=== PATIENT | female | born 1955 | race Caucasian/White ===

== ENCOUNTER 2018-11-03 11:46 | Emergency (ER) | payer OTHER ==
--- NOTE | 2018-11-03 12:10 | UC ---
Throat Pain/Nasal Nikhil HPI - HPI Summary HPI Summary: 63 yo female presents with sore throat since last night. This morning her throat pain was worse and she noticed white spots. Took some tylenol last night with mild relief. She works at [employer] and is unsure if she has had any sick contacts. She is eating and drinking well. Denies fever, chills, sinus symptoms, cough, SOB, rash. - History of Current Complaint Stated Complaint: SORE THROAT Time Seen by Provider: 11/03/18 12:09 Hx Obtained From: Patient Onset/Duration: Sudden Onset Severity: Moderate Pain Intensity: 5 Pain Scale Used: 0-10 Numeric - Allergies/Home Medications Allergies/Adverse Reactions: Allergies Allergy/AdvReac Type Severity Reaction Status Date / Time codeine Allergy Severe Nausea And Verified 11/03/18 12:12 Vomiting PMH/Surg Hx/FS Hx/Imm Hx - Additional Past Medical History Additional PMH: Bariatric surgery Cardiovascular History: Hypertension Psychological History: Anxiety - Surgical History Surgical History: Yes Surgery Procedure, Year, and Place: 02/2012 Lt MASTECTOMY, [facility] [place]. 1980 & C- SECTION [facility] [place] 1989 LEFT BREAST LUMPECTOMY CANCER [facility] [place] 1998 hysterectomy, [facility] [place]. 2010 L knee surgery [facility] [place]. 02/2012 LEFT BREAST MASTECTOMY [facility] [place]. 07/2012 RECONSTRUCTION LEFT & RT BREAST [facility] [place]. 08/2014 RIGHT KNEE REPAIR [facility] – [place]. Rt KNEE - Family History Known Family History: Positive: Hypertension - Social History Lives: With Family Alcohol Use: None Substance Use Type: None Smoking Status (MU): Former Smoker Type: Cigarettes Amount Used/How Often: LESS THEN 1/2PPD 30 YRS Length of Time of Smoking/Using Tobacco: 30 YRS Have You Smoked in the Last Year: No When Did the Patient Quit Smoking/Using Tobacco: 01/2012 Review of Systems All Other Systems Reviewed And Are Negative: Yes Constitutional: Positive: Negative Skin: Positive: Negative Eyes: Positive: Negative ENT: Positive: Sore Throat Respiratory: Positive: Negative Cardiovascular: Positive: Negative Gastrointestinal: Positive: Negative Neurovascular: Positive: Negative Neurological: Positive: Negative Psychological: Positive: Negative Physical Exam - Summary Physical Exam Summary: GENERAL: NAD. WDWN. No pain distress. SKIN: No rashes, sores, lesions, or open wounds. HEENT: Head: AT/NC Eyes: Conjunctiva clear without inflammation or discharge. Ears: Hearing grossly normal. TMs intact, no bulging, erythema, or edema. Nose: Nasal mucosa pink and moist. NTTP maxillary and frontal sinus. Throat: Posterior oropharynx moderate erythema and 2+ tonsillar enlargement. Mild exudates. Uvula midline. No hoarse voice or muffled voice. NECK: Supple. Mild TTP tonsillar LAD CHEST: CTAB. No r/r/w. No accessory muscle use. Breathing comfortably and in no distress. CV: RRR. Without m/r/g. Pulses intact. Cap refill <2seconds NEURO: Alert. PSYCH: Age appropriate behavior. Triage Information Reviewed: Yes Vital Signs: Vital Signs: Temp Pulse Resp BP Pulse Ox 96.5 F 64 18 145/68 98 11/03/18 12:09 11/03/18 12:09 11/03/18 12:09 11/03/18 12:09 11/03/18 12:09 Laboratory Tests 11/03/18 12:21 Group A Strep Rapid Positive A Vital Signs Reviewed: Yes Throat Pain/Nasal Course/Dx - Course Course Of Treatment: POC strep positive. Rx for amoxicillin - Differential Dx/Diagnosis Provider Diagnosis: Strep throat Discharge - Sign-Out/Discharge Documenting (check all that apply): Patient Departure All imaging exams completed and their final reports reviewed: No Studies - Discharge Plan Condition: Stable Disposition: HOME Prescriptions: Amoxicillin PO (*) [Amoxicillin 500 MG CAP*] 500 mg PO Q12H #20 cap Patient Education Materials: Strep Throat (DC) Referrals: Amarilys Lloyd NP [Primary Care Provider] - Additional Instructions: If you develop a fever, shortness of breath, chest pain, new or worsening symptoms - please call your PCP or go to the ED. Your blood pressure was high at todays visit. Please see your primary provider within 4 weeks for recheck and re-evaluation. - Billing Disposition and Condition Condition: STABLE Disposition: Home - Attestation Statements Provider Attestation: I was available for consult. This patient was seen by the WENDI. The patient was not presented to, seen by, or examined by me. -Skylar
[2018-11-03 12:12] VITALS: BP 145/68
== END 2018-11-03 12:30 | disposition home or self-care (01) ==
LOC: UCEAST 11:46
DX: J02.0 Streptococcal pharyngitis (principal); I10 Essential (primary) hypertension; Z87.891 Personal history of nicotine dependence; Z88.5 Allergy status to narcotic agent
CPT/HCPCS: 87651; 99212; G0463

== ENCOUNTER 2019-01-01 07:12 | Inpatient (IN) | payer OTHER ==
[~2019-01-01 07:12] MED LIST: Buffered Lidocaine 1% SYRIN* 1 ML/SYRINGE INTRADERM ONE; Famotidine IV* 10 MG/ML 2 ML (20 mg) IV ONE; Lactated Ringers 1000 ML Bag* 1,000 ML IV SCH
[2019-01-01] MEDS ORDERED: Heparin VIAL(*) 5000 UNITS/ML VIAL (FIVE THOUSAND) ONE (07:49)
[2019-01-01] MEDS ORDERED: ceFAZolin 2 GM PREMIX in ORs 2 GM/50 ML BAG IVPB ONE (07:50)
[2019-01-01] MEDS ORDERED: Famotidine IV* 10 MG/ML 2 ML (20 mg) ONE (07:50)
[2019-01-01] MEDS ORDERED: Buffered Lidocaine 1% SYRIN* 1 ML/SYRINGE INTRADERM ONE (07:50)
[2019-01-01] MEDS ORDERED: ceFAZolin 1 GM in Dextrose (*) 1 GM/50 ML BAG IVPB ONE (07:50)
[2019-01-01] MEDS ORDERED: fentaNYL* 50 MCG/ML 2 ML VIAL (100 MCG VIAL) ONE ×4 (08:32→12:31)
[2019-01-01] MEDS ORDERED: Ondansetron INJ* 2 MG/ML VIAL ONE ×2 (08:32→12:24)
[2019-01-01] MEDS ORDERED: Lidocaine 2% PF * 5 ML VIAL ONE (08:32)
[2019-01-01] MEDS ORDERED: Phenylephrine 10 MG/ML VIAL* 1 ML VIAL ONE (08:32)
[2019-01-01] MEDS ORDERED: Ketorolac INJ* 30 MG/ML 1 ML VIAL ONE (08:32)
[2019-01-01] MEDS ORDERED: Midazolam* 1 MG/ML 5 ML VIAL (5 MG) ONE (08:32)
[2019-01-01] MEDS ORDERED: Dexamethasone IV* 4 MG/ML 1 ML (4 MG) ONE (08:32)
[2019-01-01] MEDS ORDERED: Propofol* 10 MG/ML 20 ML BTL ONE (08:32)
[2019-01-01] MEDS ORDERED: Rocuronium* 10 MG/ML VIAL ONE (08:32)
[2019-01-01] MEDS ORDERED: Bupivacaine 0.25% EPI 200,000* 30 ML SDV ONE (09:36)
[2019-01-01] MEDS ORDERED: EPHEDrine (Pressors)* 50 MG/ML VIAL ONE (10:52)
[2019-01-01] MEDS ORDERED: Atropine 1MG/ML INJ* 1 ML VIAL ONE (10:52)
[2019-01-01] MEDS ORDERED: Ondansetron INJ* 2 MG/ML VIAL IV PRN (11:03)
[2019-01-01] MEDS ORDERED: Scopolamine 1.5 mg* PATCH TRANSDERM PRN (11:03)
[2019-01-01] MEDS ORDERED: Naloxone* 0.4 MG/ML 1 ML VIAL IV PRN (11:03)
[2019-01-01] MEDS ORDERED: Neostigmine Methylsulfate* 1 MG/ML 10 ML VIAL (1 mg/ml) ONE (11:14)
[2019-01-01] MEDS ORDERED: Glycopyrrolate IV* 0.2 MG/ML 1 ML VIAL ONE (11:14)
[2019-01-01] MEDS: Ketorolac INJ* 30 MG/ML 1 ML VIAL IV PRN (11:30)
--- NOTE | 2019-01-01 11:40 | OP ---
Operative Report - Blank - Operative Report Date of Operation: 01/01/19 Note: Brief Operative Note Preop Dx: morbid obesity Postop Dx: morbid obesity Procedure: laparoscopic sleeve gastrectomy Anesthesia: GET Surgeon: Juanita Television Engineering Teacher: PATRICIA Killian; DARELL Mendez Fluids: 1500 ml RL EBL: 10 ml Specimen: portion of stomach Drains: none Findings: dictated
[2019-01-01] MEDS ORDERED: Acetaminophen ADULT LIQ* 650 MG/20.3 ML UDC PO PRN (11:41)
[2019-01-01] MEDS ORDERED: HYDROcodone/ACET. 7.5/325 LIQ* 15 ML UDC PO PRN (11:41)
[2019-01-01] MEDS ORDERED: HYDROmorphone INJ1* 1 MG/ML SYRINGE IV SLOW PU PRN (11:41)
[2019-01-01] MEDS: fentaNYL* 50 MCG/ML 2 ML VIAL (100 MCG VIAL) IV PRN ×4 (11:58→12:46)
[2019-01-01] MEDS ORDERED: HYDROmorphone INJ1* 1 MG/ML SYRINGE ONE (12:24)
[2019-01-01] MEDS: Lactated Ringers 1000 ML Bag* 1,000 ML IV SCH ×2 (13:27→20:06)
[2019-01-01] MEDS: Heparin VIAL(*) 5000 UNITS/ML VIAL (FIVE THOUSAND) SUBCUT SCH ×2 (14:37→21:36)
[2019-01-01] MEDS: HYDROmorphone INJ1* 1 MG/ML SYRINGE IV SLOW PU PRN ×2 (14:40→18:26)
--- NOTE | 2019-01-01 18:16 | OP ---
CC: [facility]; Amarilys Lloyd NP * DATE OF OPERATION: 01/01/19 - ROOM #352 DATE OF : 59 SURGEON: Dl Grant MD. COLLET DRILLER: PATRICIA Ahumada. ANESTHESIOLOGIST: Dr. Morgan Ma. ANESTHESIA: General endotracheal. PRE-OP DIAGNOSIS: Clinically severe obesity. POST-OP DIAGNOSIS: Clinically severe obesity. OPERATIVE PROCEDURE: Laparoscopic sleeve gastrectomy. ESTIMATED BLOOD LOSS: Minimal. IV FLUIDS: Crystalloids. SPECIMENS: Portion of stomach. DRAINS: None. COMPLICATIONS: None. COUNTS: The instrument, needle, and sponge counts were correct. DESCRIPTION OF PROCEDURE: The patient was brought to the operating room and placed on the table supine. Sequential compression devices were placed on both lower extremities. General anesthesia was administered. She was positioned and padded appropriately. She received appropriate intravenous antibiotics. She was prepped and draped in the usual sterile fashion. A time-out was performed. Local anesthetic was infiltrated into the skin and soft tissue prior to making each incision. The entry into the abdomen was through a left upper quadrant incision accommodating a 5 mm optical trocar. After accessing the peritoneal cavity, carbon dioxide was insufflated to a pressure of 15 mmHg. Under direct visualization, two 12 mm trocars were placed, one in the right upper quadrant and one in the supraumbilical midline and then a 5-mm trocar was placed in the left upper quadrant laterally. A Holli liver retractor was placed percutaneously in the subxiphoid position and used to elevate the left lobe of the liver. The gastric anatomy appeared normal. The pylorus was identified and 6 cm proximal to this, the greater curvature was skeletonized in this procedure proximally all the way to the gastroesophageal junction. LigaSure was used to divide short gastric vessels including posterior short gastric vessels and there were noted to be no adhesions within the lesser sac. After completing the mobilization, the sleeve gastrectomy was performed using the Endo NARCISO stapler with purple reinforced cartridges and this was done over at 40-[place] bougie. After completing the division of the stomach , the stomach was retrieved using an endoscopic retrieval bag through the right upper quadrant port site, which was enlarged slightly to accommodate the stomach. The port site was subsequently closed with 0 Vicryl in interrupted fashion to approximate the muscle and fascia in one layer. The ports were then removed and carbon dioxide was released. The skin incisions were closed with 4- 0 Monocryl in a subcuticular fashion and Steri-Strips were applied. The patient tolerated this procedure well, was extubated and transferred to the recovery room in stable condition. [id number]/[facility] #: [id number] MTDD
[2019-01-01] MEDS: Famotidine IV* 10 MG/ML 2 ML (20 mg) IV SLOW PU SCH (21:37)
[2019-01-02] MEDS: Lactated Ringers 1000 ML Bag* 1,000 ML IV SCH (02:41)
[2019-01-02] MEDS: Ketorolac INJ* 30 MG/ML 1 ML VIAL IV PRN ×3 (03:44→21:18)
[2019-01-02] MEDS: Ondansetron INJ* 2 MG/ML VIAL IV PRN (03:49)
[2019-01-02] MEDS: Heparin VIAL(*) 5000 UNITS/ML VIAL (FIVE THOUSAND) SUBCUT SCH ×3 (05:30→21:18)
[2019-01-02] MEDS ORDERED: ALPRAZolam TAB* 0.25 MG PO PRN (08:13)
[2019-01-02] MEDS: D5W 1/2 NS KCl 20 Meq 1000 ML* 1,000 ML IV SCH ×2 (10:01→18:02)
[2019-01-02] MEDS: Famotidine IV* 10 MG/ML 2 ML (20 mg) IV SLOW PU SCH ×2 (10:01→21:18)
[2019-01-02] MEDS ORDERED: Scopolamine 1.5 mg* PATCH TRANSDERM SCH (12:00)
[2019-01-02] MEDS: Simethicone TAB* 80 MG TAB.CHEW PO PRN (16:02)
[2019-01-03] MEDS: D5W 1/2 NS KCl 20 Meq 1000 ML* 1,000 ML IV SCH ×2 (02:03→10:16)
[2019-01-03] MEDS: Heparin VIAL(*) 5000 UNITS/ML VIAL (FIVE THOUSAND) SUBCUT SCH (05:57)
[2019-01-03] MEDS: Ondansetron INJ* 2 MG/ML VIAL IV PRN (06:48)
[2019-01-03] MEDS: Simethicone TAB* 80 MG TAB.CHEW PO PRN (07:48)
[2019-01-03] MEDS: Famotidine IV* 10 MG/ML 2 ML (20 mg) IV SLOW PU SCH (09:03)
--- NOTE | 2019-01-03 11:00 | PN ---
Progress Note - Progress Note Date of Service: 01/03/19 Note: S: POD #2. Doing better. Still occ spasms/nausea, but drinking tyesha clears otherwise well. Patient seen w/ Dr. Grant. Passing flatus. Ambulating well. O: Vital Signs - 8 hr 01/03/19 01/03/19 01/03/19 03:36 05:33 07:45 Temperature 98.0 F 98.1 F Pulse Rate 43 50 Respiratory 16 16 Rate Blood Pressure 110/47 122/59 (mmHg) O2 Sat by Pulse 92 92 98 Oximetry 01/03/19 01/03/19 01/03/19 07:48 08:00 10:19 Temperature Pulse Rate Respiratory 16 16 16 Rate Blood Pressure (mmHg) O2 Sat by Pulse 98 Oximetry Intake and Output Last 24 Hours 01/01/19 01/02/19 01/03/19 01/04/19 06:59 06:59 06:59 06:59 Intake Total 3857 3150 60 Output Total 1000 950 900 Balance 2857 2200 -840 Weight 245 lb Intake: IV Fluids 3857 1980 3G CEFAZOLIN 100 D5 1/2 NS 20KCL 1979 LR 3757 Oral 0 1170 60 Output: Urine 1000 950 900 Other: Estimated Void Medium Large # Bowel Movements 0 0 # Voids 1 1 Gen: appears comfortable, sitting up in chair Heart: reg Lungs: clear Abd: lap sites clean and dry; soft; mild to moderate tenderness at RUQ incision only (expected) A: s/p lap sleeve gastrectomy, improving P: home today; instructions reviewed; f/u next wk at [facility]
[2019-01-03 12:27] VITALS: BP 141/66
--- NOTE | 2019-01-03 12:28 | DS ---
CC: Amarilys Lloyd NP at [facility]* DISCHARGE SUMMARY: DATE OF ADMISSION: 01/01/19 DATE OF DISCHARGE: 01/03/19 ATTENDING SURGEON: Dr. Dl Grant* (dictated by PATRICIA Ahumada). HOSPITAL COURSE: Please refer to admission history and physical and operative note for details. The patient was taken to the operating room on 01/01/19 at which time she underwent laparoscopic sleeve gastrectomy with Dr. Grant. There were no perioperative complications. Her bariatric clear liquid intake was subpar on postoperative day #1 and therefore, she stayed until today. As of this morning, she was tolerating fluid better with still some residual nausea and/or spasms when she drinks. She was deemed appropriate for discharge. See separate progress note from the same date. She will hold her prior hydrochlorothiazide. She has a followup at [facility] next week. She was instructed in terms of wound care, diet, and pain medication. She is discharged to home in good condition. PATRICIA AHUMADA [id number]/[facility] #: [id number] [facility]
[2019-01-04] MEDS ORDERED: Scopolamine PATCH Remove* 1 NOTE MISC PATCH OFF ONE (11:04)
== END 2019-01-03 12:15 | disposition home or self-care (01) | DRG 621 ==
LOC: AA 07:12 → SSU 11:41
PROVIDERS: ADMIT Surgery; ATTEND Surgery
PROC: 0DB64Z3 Excision of Stomach, Percutaneous Endoscopic Approach, Vertical (ICD-10-PCS; principal; 2019-01-01 09:00)
DX: E66.01 Morbid (severe) obesity due to excess calories (principal); K21.9 Gastro-esophageal reflux disease without esophagitis; K76.9 Liver disease, unspecified; I10 Essential (primary) hypertension; K76.0 Fatty (change of) liver, not elsewhere classified; G47.33 Obstructive sleep apnea (adult) (pediatric); I48.0 Paroxysmal atrial fibrillation; E78.5 Hyperlipidemia, unspecified; F41.9 Anxiety disorder, unspecified; J30.9 Allergic rhinitis, unspecified; I08.1 Rheumatic disorders of both mitral and tricuspid valves; M85.80 Other specified disorders of bone density and structure, unspecified site; R25.2 Cramp and spasm; R11.0 Nausea; Z90.12 Acquired absence of left breast and nipple; Z90.710 Acquired absence of both cervix and uterus; Z68.39 Body mass index [BMI] 39.0-39.9, adult; Z85.3 Personal history of malignant neoplasm of breast; Z82.49 Family history of ischemic heart disease and other diseases of the circulatory system; Z90.721 Acquired absence of ovaries, unilateral; Z72.89 Other problems related to lifestyle; Z87.891 Personal history of nicotine dependence; Z92.3 Personal history of irradiation; Z92.21 Personal history of antineoplastic chemotherapy; Z90.722 Acquired absence of ovaries, bilateral; Z90.49 Acquired absence of other specified parts of digestive tract; Z83.3 Family history of diabetes mellitus; Z95.0 Presence of cardiac pacemaker; Z82.3 Family history of stroke
CPT/HCPCS: 43775; 88307; A9270-GY; J0461; J0690; J1100; J1170; J1644; J1885; J2250; J2405; J2704; J2710; J3010

== ENCOUNTER 2019-07-03 16:43 | Inpatient (IN) | payer OTHER ==
--- OUTSIDE RECORDS SUMMARY | 2019-07-03 17:35 | XMS REPORT | Continuity of Care Document ---
:1955 External Reference #:[id number] Author Name Amarilys Lloyd N.P. (transmitted by agent of provider Yolis Cervantes) Address [address] [facility], [place] [address] Care Team Providers Name Role Phone Don Stovall MD - Orthopaedic Care Team Information Store Consultant [phone] Surgery Amarilys Lloyd NP - Family Care Team Information Store Consultant [phone] Problems Active Problems Provider Date Hyperlipidemia Amarilys Lloyd, N.P. Onset: 03/28/2011 Personal history of primary malignant Amarilys Lloyd, N.P. Onset: 01/17/2012 neoplasm of breast Anxiety state Amarilys Lloyd, N.P. Onset: 01/17/2012 Allergic rhinitis Amarilys Lloyd, N.P. Onset: 01/17/2012 Gastroesophageal reflux disease Amarilys Lloyd, N.P. Onset: 01/17/2012 Benign essential hypertension Amarilys Lloyd, N.P. Onset: 03/01/2012 Body mass index 30+ - obesity Yamil Vicente M.D.,FACP Onset: 08/22/2017 Ex-smoker Yamil Vicente M.D.,FACP Onset: 08/22/2017 Disorder of bursa of shoulder region Don Stovall MD Onset: 03/15/2018 Strain of muscle(s) and tendon(s) of Don Stovall MD Onset: 03/15/2018 the rotator cuff of right shoulder, subsequent encounter Controlled atrial fibrillation Luz Bennett NP Onset: 06/04/2018 Social History Type Date Description Comments Sex Unknown Cigarette Use 08/22/2017 Pack Years - 10 1/4 PPD or less, social, for 40 years ETOH Use Occasionally consumes alcohol Tobacco Use Start: Unknown End: Patient is a former Quit smoking Shonda Unknown smoker 2011 Recreational Drug Use Denies Drug Use Smoking Status Reviewed: 05/17/19 Patient is a former Quit smoking Shonda smoker 2011 Exercise Type/Frequency Exercises regularly Walks daily Allergies, Adverse Reactions, Alerts Active Allergies Reaction Severity Comments Date Codeine Nausea and Vomiting Moderate 09/30/2010 Inactive Allergies No Known Drug Allergy 04/22/2010 Medications Active Medications SIG Qnty Indications Ordering Date Provider Trazodone HCL 1 tablet at 30tabs G47.00 Amarilys Varmorelia, 05/17/2019 50mg bedtime as needed N.P. Tablets Xarelto 1 by mouth every 30tabs Amarilys Gabino, 02/25/2019 20mg Tablets day N.P. Ketoconazole apply once daily 60units B35.3 Amarilys Gabino, 2018 2% Cream to affected area N.P. Xanax take one tablet 30tabs Amarilys Lloyd, 09/30/2010 0.25mg Tablets by mouth up to N.P. three times a day as needed for anxiety, maximum 3 per day Ibuprofen 200 400-600mg every 6 Unknown 200mg hours as needed Tablets for pain. Multivitamin Adult 1 by mouth every Unknown day (bariatric Tablets formula) Iron 2 tablets daily Unknown 90(18Fe) mg Tablets History Medications Fluconazole one by mouth 2tabs B37.3 Amarilys Gabino, 11/20/2018 - 150mg Tablets may repeat in 3 N.P. 11/26/2018 days as needed Cyclobenzaprine HCL 1 by mouth at 20tabs M62.838 Amarilys Gabino, 2018 - 5mg bedtime as N.P. 12/04/2018 Tablets needed for back pain Immunizations CPT Code Status Date Vaccine Lot # [id number] Given 06/28/2010 Tdap - Tetanus/Diptheria/Acellular Pertussis Vital Signs Date Vital Result Comment 05/17/2019 9:11am Height 68 inches 5'8" Weight 206.25 lb Heart Rate 49 /min BP Systolic 124 mmHg BP Diastolic 68 mmHg Body Temperature 97.9 F O2 % BldC Oximetry 99 % BMI (Body Mass Index) 31.4 kg/m2 05/06/2019 1:33pm Heart Rate 80 /min BP Systolic 110 mmHg Rue, large cuff BP Diastolic 80 mmHg Rue, large cuff Respiratory Rate 12 /min Results Test Date Facility Test Result H/L Range Note Comp Metabolic 05/04/2019 [facility] Sodium 143 mmol/L Normal 135-[address] [place] [address] [phone] Potassium 3.9 mmol/L Normal 3.5-5.0 Chloride 108 mmol/L Normal 101-111 Co2 Carbon Dioxide 28 mmol/L Normal 22-32 Anion Gap 7 mmol/L Normal 2-11 Glucose 95 mg/dL Normal 70-100 Blood Urea Nitrogen 14 mg/dL Normal 6-24 Creatinine 0.66 mg/dL Normal 0.51-0.95 BUN/Creatinine Ratio 21.2 High 8-20 Calcium 9.0 mg/dL Normal 8.6-10.3 Total Protein 6.4 g/dL Normal 6.4-8.9 Albumin 3.8 g/dL Normal 3.2-5.2 Globulin 2.6 g/dL Normal 2-4 Albumin/Globulin Ratio 1.5 Normal 1-3 Total Bilirubin 0.70 mg/dL Normal 0.2-1.0 Alkaline Phosphatase 89 U/L Normal 34-104 Alt 12 U/L Normal 7-52 Ast 15 U/L Normal 13-39 Egfr Non- 91.0 >60 Egfr 110.2 >60 1 Lipid Profile 05/04/2019 [facility] Triglycerides 90 mg/dL 2 (Trig/Chol/HDL) [address] [place] [address] [phone] Cholesterol 150 mg/dL 3 HDL Cholesterol 45.0 mg/dL 4 LDL Cholesterol 87 mg/dL 5 CBC Auto 03/08/2019 [facility] White Blood 7.3 10^3/uL Normal 3.5-10.[address] [place] [address] [phone] Red Blood Count 4.36 10^6/uL Normal 3.70-4.87 Hemoglobin 12.8 g/dL Normal 12.0-16.0 Hematocrit 38 % Normal 35-47 Mean Corpuscular Volume 87 fL Normal 80-97 Mean Corpuscular Hemoglobin 29 pg Normal 27-31 Mean Corpuscular HGB Conc 34 g/dL Normal 31-36 Red Cell Distribution Width 15 % Normal 10-15 Platelet Count 174 10^3/uL Normal 150-450 Mean Platelet Volume 10.6 fL High 7.4-10.4 Abs Neutrophils 4.6 10^3/uL Normal 1.5-7.7 Abs Lymphocytes 2.3 10^3/uL Normal 1.0-4.8 Abs Monocytes 0.3 10^3/uL Normal 0-0.8 Abs Eosinophils 0.1 10^3/uL Normal 0-0.6 Abs Basophils 0.0 10^3/uL Normal 0-0.2 Abs Nucleated RBC 0.0 10^3/uL Granulocyte % 62.7 % Lymphocyte % 31.2 % Monocyte % 4.6 % Eosinophil % 1.0 % Basophil % 0.5 % Nucleated Red Blood Cells % 0.1 Laboratory test 03/08/2019 [facility] Ferritin 87.8 ng/mL Normal 11-[address] [place] [phone] Iron & Iron 03/08/2019 [facility] Iron 42 g/dL Low 50-212 Binding Capacity [address] [place] [phone] Unsaturated Iron Binding < 243 g/dL Total Iron Binding Capacity 258 g/dL Normal 250-450 Transferrin 184 mg/dL Low 203-362 % Iron Saturation 16 % Normal 15-55 Laboratory 02/25/2019 [facility] TSH (Thyroid 0.95 Normal 0.34 -5.60 test finding [address] [place] [address] Stim Horm) mcIU/[place] [address] [phone] Comp Metabolic 02/25/2019 [facility] Sodium 143 mmol/L Normal 135-[address] [place] [address] [phone] Potassium 4.0 mmol/L Normal 3.5-5.0 Chloride 107 mmol/L Normal 101-111 Co2 Carbon Dioxide 27 mmol/L Normal 22-32 Anion Gap 9 mmol/L Normal 2-11 Glucose 98 mg/dL Normal 70-100 Blood Urea Nitrogen 15 mg/dL Normal 6-24 Creatinine 0.71 mg/dL Normal 0.51-0.95 BUN/Creatinine Ratio 21.1 High 8-20 Calcium 9.4 mg/dL Normal 8.6-10.3 Total Protein 6.6 g/dL Normal 6.4-8.9 Albumin 4.0 g/dL Normal 3.2-5.2 Globulin 2.6 g/dL Normal 2-4 Albumin/Globulin Ratio 1.5 Normal 1-3 Total Bilirubin 0.60 mg/dL Normal 0.2-1.0 Alkaline Phosphatase 85 U/L Normal 34-104 Alt 19 U/L Normal 7-52 Ast 21 U/L Normal 13-39 Egfr Non- 83.7 >60 Egfr 101.3 >60 6 CBC Auto 02/25/2019 [facility] White Blood 8.7 10^3/uL Normal 3.5-10.[address] [place] [address] [phone] Red Blood Count 5.30 10^6/uL High 3.70-4.87 Hemoglobin 15.5 g/dL Normal 12.0-16.0 Hematocrit 46 % Normal 35-47 Mean Corpuscular Volume 87 fL Normal 80-97 Mean Corpuscular Hemoglobin 29 pg Normal 27-31 Mean Corpuscular HGB Conc 34 g/dL Normal 31-36 Red Cell Distribution Width 14 % Normal 10-15 Platelet Count 215 10^3/uL Normal 150-450 Mean Platelet Volume 10.6 fL High 7.4-10.4 Abs Neutrophils 5.7 10^3/uL Normal 1.5-7.7 Abs Lymphocytes 2.3 10^3/uL Normal 1.0-4.8 Abs Monocytes 0.6 10^3/uL Normal 0-0.8 Abs Eosinophils 0.1 10^3/uL Normal 0-0.6 Abs Basophils 0.0 10^3/uL Normal 0-0.2 Abs Nucleated RBC 0.0 10^3/uL Granulocyte % 66.0 % Lymphocyte % 26.3 % Monocyte % 6.4 % Eosinophil % 0.9 % Basophil % 0.4 % Nucleated Red Blood Cells % 0.1 Laboratory test 01/01/2019 [facility] Surgical SEE RESULT [address] [place] [address] [phone] Basic Metabolic 12/25/2018 [facility] Sodium 137 mmol/L Normal 135-[address] [place] [address] [phone] Potassium 3.9 mmol/L Normal 3.5-5.0 Chloride 101 mmol/L Normal 101-111 Co2 Carbon Dioxide 29 mmol/L Normal 22-32 Anion Gap 7 mmol/L Normal 2-11 Glucose 94 mg/dL Normal 70-100 Blood Urea Nitrogen 16 mg/dL Normal 6-24 Creatinine 0.70 mg/dL Normal 0.51-0.95 BUN/Creatinine Ratio 22.9 High 8-20 Calcium 9.5 mg/dL Normal 8.6-10.3 Egfr Non- 85.1 >60 Egfr 102.9 >60 8 CBC No Diff 12/25/2018 [facility] White Blood 9.8 10^3/uL Normal 3.5-10.[address] [place] [address] [phone] Red Blood Count 4.79 10^6/uL Normal 3.70-4.87 Hemoglobin 14.0 g/dL Normal 12.0-16.0 Hematocrit 41 % Normal 35-47 Mean Corpuscular Volume 86 fL Normal 80-97 Mean Corpuscular Hemoglobin 29 pg Normal 27-31 Mean Corpuscular HGB Conc 34 g/dL Normal 31-36 Red Cell Distribution Width 14 % Normal 10.5-15 Platelet Count 253 10^3/uL Normal 150-450 Mean Platelet Volume 8.8 fL Normal 7.4-10.4 Urine Culture And 11/20/2018 [facility] Urine Culture SEE RESULT [address] [place] [address] [phone] Ua Routine 11/20/2018 [facility] Ua Specific [address] [place] Ua PH 5 Ua Color cammie Ua Appera cloudy Ua WBC trace Ua Protein negative Ua Glucose negative Ua Ketones negative Ua Bilirubin negative Ua Urobilinogen negative Ua Nitrite negative Ua Occult Blood trace 1 Because ethnic data is not always readily available, this report includes an eGFR for both -Americans and non- Americans. The National Kidney Disease Education Program (NKDEP) does not endorse the use of the MDRD equation for patients that are not between the ages of 18 and 70, are , have extremes of body size, muscle mass, or nutritional status, or are non- or non-. According to the National Kidney Foundation, irrespective of diagnosis, the stage of the disease is based on the level of kidney function: Stage Description GFR(mL/min/1.73 m(2)) 1 Kidney damage with normal or decreased GFR 90 2 Kidney damage with mild decrease in GFR 60-89 3 Moderate decrease in GFR 30-59 4 Severe decrease in GFR 15-29 5 Kidney failure <15 (or dialysis) 2 Desirable: <150 Borderline High: 150-199 High: 200-499 Very High: >500 3 Desirable: <200 Borderline High: 200-239 High: >239 4 Low: <40 Desirable: 40-60 High: >60 5 Desirable: <100 Near Optimal: 100-129 Borderline High: 130-159 High: 160-189 Very High: >189 6 Because ethnic data is not always readily available, this report includes an eGFR for both -Americans and non- Americans. The National Kidney Disease Education Program (NKDEP) does not endorse the use of the MDRD equation for patients that are not between the ages of 18 and 70, are , have extremes of body size, muscle mass, or nutritional status, or are non- or non-. According to the National Kidney Foundation, irrespective of diagnosis, the stage of the disease is based on the level of kidney function: Stage Description GFR(mL/min/1.73 m(2)) 1 Kidney damage with normal or decreased GFR 90 2 Kidney damage with mild decrease in GFR 60-89 3 Moderate decrease in GFR 30-59 4 Severe decrease in GFR 15-29 5 Kidney failure <15 (or dialysis) 7 SEE RESULT BELOW Name: SHALINI MANDEL : [address]: Dl Grant MD Acct: [id number] Unit: [id number] AGE: 63 Location: [place] [address] Re01/01/19 SEX: F Status: ADM IN SPEC: [id number] ALYCIA: 01/01/19- SUBM DR: Dl Grant MD REQ: [id number] RECD: 01/01/19780 STATUS: SOUT _ ORDERED: LEVEL 5 FINAL DIAGNOSIS Stomach, partial gastrectomy: -- Benign gastric tissue with no significant pathologic abnormalities. PRE-OPERATIVE DIAGNOSIS Morbid obesity GROSS DESCRIPTION The specimen is received in formalin labeled, Portion of Stomach, and consists of a 22.0 x 6.5 x 2.2 cm previously disrupted portion of gastric tissue. The serosa is predominantly shaggy almanza-red with multiple superficial and transmural defects, scant adherent yellow fat and a prominent staple line. The mucosa is predominantly disrupted. The intact mucosa is glistening almanza-red with normal rugal folds. Senior Office Assistant sections, one cassette. Signed by and Reported on: Damaris Triana MD 01/02/19 1428 END OF REPORT DEPARTMENT OF PATHOLOGY, [address] [place] [address] Tony Mendes M.D. Director [facility] # [id number] 8 Because ethnic data is not always readily available, this report includes an eGFR for both -Americans and non- Americans. The National Kidney Disease Education Program (NKDEP) does not endorse the use of the MDRD equation for patients that are not between the ages of 18 and 70, are , have extremes of body size, muscle mass, or nutritional status, or are non- or non-. According to the National Kidney Foundation, irrespective of diagnosis, the stage of the disease is based on the level of kidney function: Stage Description GFR(mL/min/1.73 m(2)) 1 Kidney damage with normal or decreased GFR 90 2 Kidney damage with mild decrease in GFR 60-89 3 Moderate decrease in GFR 30-59 4 Severe decrease in GFR 15-29 5 Kidney failure <15 (or dialysis) 9 SEE RESULT BELOW Name: SHALINI MANDEL : [address]: Amarilys Lloyd NP Acct: [id number] Unit: [id number] AGE: 63 Location: [facility] Re11/20/18 SEX: F Status: REG REF SPEC: [id number] ALYCIA: 11/20/18-[address]: Amarilys Lloyd NP REQ: [id number] RECD: 11/20/18 STATUS: COMP _ SOURCE: URINE [facility]: ORDERED: Urine Culture COMMENTS: [id number] Urine Source: Random Procedure Result Reported Site Urine Culture Final 11/23/18- 912 ML No growth of clinically significant organisms * ML - Main Lab . END OF REPORT DEPARTMENT OF PATHOLOGY, [address] [place] [address] Tony Mendes M.D. Director [facility] # [id number] Procedures Date Code Description Status 05/07/2019 12547 Cardioversion Completed 05/06/2019 29043 EKG Tracing & Interpretation Completed 02/25/2019 49817 EKG Tracing & Interpretation Completed 12/07/2018 45198 EKG Tracing & Interpretation Completed 10/17/2018 [id number] Colonoscopy Completed 01/26/2018 [id number] Mammogram Completed 01/25/2017 [id number] Mammogram Completed 01/25/2016 [id number] Mammogram Completed 01/22/2015 [id number] Mammogram Completed 01/21/2014 [id number] Mammogram Completed 01/21/2013 [id number] Mammogram Completed 02/06/2012 [id number] Mammogram Completed 02/01/2012 [id number] Mammogram Completed 07/20/2010 [id number] Mammogram Completed 07/20/2010 [id number] Bone Mineral Density Test Completed 03/20/2008 [id number] Mammogram Completed 10/31/2007 [id number] Colonoscopy Completed Medical Devices Description No Information Available Encounters Type Date Location Provider Dx Diagnosis Office Visit 02/25/2019 [facility] Internal Amarilys Lloyd, N.P. R00.2 Palpitations 3:40p Medicine - Ccmob I48.1 Persistent atrial fibrillation Office Visit 12/07/2018 9:00a [facility] Jose Garcia R00.2 Palpitations Of Kayley Snyder M.D. Z01.810 Encounter for preprocedural cardiovascular examination I49.3 Ventricular premature depolarization I48.0 Paroxysmal atrial fibrillation E66.01 Morbid (severe) obesity due to excess calories Office Visit 11/29/2018 Chris Ochoa M19.032 Primary 3:00p Orthopedics at [facility] osteoarthritis, left [place] wrist M25.532 Pain in left wrist Office Visit 11/20/2018 3:40p [facility] Internal Amarilys Lloyd, B37.3 Candidiasis of Medicine - N.P. vulva and vagina Ccmob R10.12 Left upper quadrant pain M62.838 Other muscle spasm Assessments Date Code Description Provider 05/17/2019 Z00.00 Encounter for general adult medical Amarilys Lloyd, N.P. examination without abnormal findings 05/17/2019 I48.0 Paroxysmal atrial fibrillation Amarilys Varn, N.P. 05/17/2019 I10 Essential (primary) hypertension Amarilys Varn, N.P. 05/17/2019 F41.9 Anxiety disorder, unspecified Amarilys Varn, N.P. 05/17/2019 Z85.3 Personal history of malignant neoplasm of Amarilys Varn, N.P. breast 05/17/2019 E78.00 Pure hypercholesterolemia, unspecified Amarilys Varn, N.P. 05/17/2019 K21.9 Gastro-esophageal reflux disease without Amarilys Varn, N.P. esophagitis 05/17/2019 Z98.84 Bariatric surgery status Amarilys Lloyd, N.P. 05/17/2019 G47.00 Insomnia, unspecified Amarilys Lloyd, N.P. 05/06/2019 I48.0 Paroxysmal atrial fibrillation Nurse Visit IC 02/25/2019 I48.1 Persistent atrial fibrillation Herminia Rock MD 02/25/2019 R00.2 Palpitations Amarilys Lloyd, N.P. 02/25/2019 I48.1 Persistent atrial fibrillation Amarilys Lloyd, N.P. 12/07/2018 R00.2 Palpitations Jose Snyder M.D. 12/07/2018 Z01.810 Encounter for preprocedural cardiovascular Jose Snyder M.D. examination 12/07/2018 I49.3 Ventricular premature depolarization Jose Snyder M.D. 12/07/2018 I48.0 Paroxysmal atrial fibrillation Jose Snyder M.D. 12/07/2018 E66.01 Morbid (severe) obesity due to excess Jose Snyder M.D. 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 11/20/2018 R10.12 Left upper quadrant pain Amarilys Lloyd N.P. 11/20/2018 M62.838 Other muscle spasm Amarilys Lloyd, N.P. Plan of Treatment 05/17/2019 - Amarilys Lloyd, N.P.Z00.00 Encounter for general adult medical examination without abnormal findingsComments:For your routine health maintenance: I encourage you to continue with regular exercise. While your general nutrition is fairly good, you could improve by cutting back on desserts.Your colonoscopy is upto date. You had this in 2019. You will need this repeated in 2028. Your Tetanus immunization is up to date. You received this in 2009. It is good for 10 years unless you have a major injury, then it is good for 5 years. There is a new shingles vaccine available, Shingrix. This is a series of 2 injections given 2 - 6 months apart. This is available at the pharmacy and I urge you to get this.I48.0 Paroxysmal atrial fibrillationComments :With your history of atrial fibrillation, please continue your management with your safety attendant.I10 Essential (primary) hypertensionComments:Your high blood pressure is in excellent control on your current management. I would like you to monitor your blood pressure at home. If your readings at home are consistently higher than 140/90, please call the office.F41.9 Anxiety disorder, unspecifiedComments:For your anxiety: Continue your current management. If you should at any time feel your symptoms arenot well controlled, please give the office a call.Z85.3 Personal history of malignant neoplasm of breastComments:I am ordering your mammogram. The imaging department will review the results with you at the time ofservice. Please continue your care with your specialist.E78.00 Pure hypercholesterolemia, unspecifiedComments:Your recent labs to check your cholesterol looked good.K21.9 Gastro-esophageal reflux disease without esophagitisComments:For your esophageal reflux: I advise you to avoid food triggers. These include: Spicy, greasy, and acidic foods, along with coffee and alcohol. If at any point you feel your symptoms are not well controlled, please contact the office.Z98.84 Bariatric surgery statusComments:I have ordered blood work to check all your vitamin and iron levels.I will contact you with your results.G47.00 Insomnia, unspecifiedNew Medication: Trazodone HCL 50 mg - 1 tablet at bedtime as neededComments:For your insomnia:I have prescribed Trazodone 50 mg for you. You may take 1 tablet as needed for insomnia.Be sure you have a dark quiet room to sleep in.Avoid reading or watching television in bed.Stayoff all electronic devices for at least 2 hours before bed.If you do not find this helpful, please let me know. Functional Status Description No Information Available Mental Status Description No Information Available Referrals Refer to Reason for Referral Status Appt Date Jose Snyder MD Patient is in atrial fibrillation. She had Sent bariatric surgery in December. Has been compliant with her vitamins. I started her on Xarelto 20 mg. Patient is referred for management. Thank you for seeing this very pleasant patient. [id number] [place] [phone]
--- OUTSIDE RECORDS SUMMARY | 2019-07-03 17:35 | XMS REPORT | Continuity of Care Document ---
:1955 External Reference #:[id number] Author Name Oumou Guillermo MD (transmitted by agent of provider Lito Lagos) Address [address] [facility], [place] [address] Care Team Providers Name Role Phone Don Stovall MD - Orthopaedic Care Team Information Coagulation Operator [phone] Surgery Amarilys Lloyd NP - Family Care Team Information Coagulation Operator [phone] Problems Active Problems Provider Date Hyperlipidemia Amarilys [...] End: Patient is a former Quit smoking January Unknown smoker 2011 Recreational Drug Use Denies Drug Use Smoking Status Reviewed: 06/19/19 Patient is a former Quit smoking Shonda smoker 2011 Exercise Type/Frequency Exercises regularly Walks daily Allergies, Adverse Reactions, Alerts Active Allergies Reaction Severity Comments Date Codeine Nausea and Vomiting Moderate 09/30/2010 Inactive Allergies No Known Drug Allergy 04/22/2010 Medications Active Medications SIG Qnty Indications Ordering Provider Date Trazodone HCL 1 tablet at 30tabs G47.00 Amarilys Varn, 05/17/2019 50mg bedtime as needed N.P. Tablets Xarelto 1 by mouth every 30tabs Amarilys Varn, 02/25/2019 20mg Tablets day N.P. Xanax take one tablet 30tabs Amarilys Varn, 09/30/2010 0.25mg Tablets by mouth up to N.P. three times a day as needed for anxiety, maximum 3 per day Ibuprofen 200 400-600mg every 6 Unknown 200mg hours as needed Tablets for pain. Multivitamin Adult 1 by mouth every Unknown day (bariatric Tablets formula) Iron 2 tablets daily Unknown 90(18Fe) mg Tablets Ketoconazole apply twice daily Unknown 2% Cream to affected area Immunizations CPT Code Status Date Vaccine Lot # [id number] Given 06/28/2010 Tdap - Tetanus/Diptheria/Acellular Pertussis Vital Signs Date Vital Result Comment 06/19/2019 3:22pm Height 68 inches 5'8" Weight 202.00 lb Heart Rate 72 /min BP Systolic 148 mmHg BP Diastolic 80 mmHg Respiratory Rate 16 /min Body Temperature 98.1 F BMI (Body Mass Index) 30.7 kg/m2 05/17/2019 9:11am Height 68 inches 5'8" Weight 206.25 lb Heart Rate 49 /min BP Systolic 124 mmHg BP Diastolic 68 mmHg Body Temperature 97.9 F O2 % BldC Oximetry 99 % BMI (Body Mass Index) 31.4 kg/m2 Results Test Acquired Date Facility Test Result H/L Range Note Bariatric Panel 06/17/2019 [facility] Ferritin 50.3 ng/mL Normal 11-307 Post Op [address] [place] [address] [phone] Vitamin B12 472 pg/mL Normal 180-914 1 Folic Acid (Folate) > 20.00 ng/mL >3.99 Vitamin D Total 25(Oh) 24.9 ng/mL Normal 20-50 2 Vitamin B1 (Whole Blood) 180 nmol/L 70-180 3 Vitamin E Level 10.8 mg/L 5.5 - 17.0 4 Comp Metabolic 06/17/2019 [facility] Sodium 141 mmol/L Normal 135-[address] [place] [address] [phone] Potassium 3.8 mmol/L Normal 3.5-5.0 Chloride 107 mmol/L Normal 101-111 Co2 Carbon Dioxide 27 mmol/L Normal 22-32 Anion Gap 7 mmol/L Normal 2-11 Glucose 106 mg/dL High 70-100 Blood Urea Nitrogen 16 mg/dL Normal 6-24 Creatinine 0.67 mg/dL Normal 0.51-0.95 BUN/Creatinine Ratio 23.9 High 8-20 Calcium 9.1 mg/dL Normal 8.6-10.3 Total Protein 6.7 g/dL Normal 6.4-8.9 Albumin 4.0 g/dL Normal 3.2-5.2 Globulin 2.7 g/dL Normal 2-4 Albumin/Globulin Ratio 1.5 Normal 1-3 Total Bilirubin 0.40 mg/dL Normal 0.2-1.0 Alkaline Phosphatase 98 U/L Normal 34-104 Alt 14 U/L Normal 7-52 Ast 16 U/L Normal 13-39 Egfr Non- 89.2 >60 Egfr 107.9 >60 5 CBC Auto 06/17/2019 [facility] White Blood 9.2 10^3/uL Normal 3.5-10.[address] [place] [address] [phone] Red Blood Count 4.60 10^6/uL Normal 3.70-4.87 Hemoglobin 14.0 g/dL Normal 12.0-16.0 Hematocrit 41 % Normal 35-47 Mean Corpuscular Volume 89 fL Normal 80-97 Mean Corpuscular Hemoglobin 31 pg Normal 27-31 Mean Corpuscular HGB Conc 34 g/dL Normal 31-36 Red Cell Distribution Width 13 % Normal 10-15 Platelet Count 229 10^3/uL Normal 150-450 Mean Platelet Volume 9.4 fL Normal 7.4-10.4 Abs Neutrophils 6.0 10^3/uL Normal 1.5-7.7 Abs Lymphocytes 2.6 10^3/uL Normal 1.0-4.8 Abs Monocytes 0.4 10^3/uL Normal 0-0.8 Abs Eosinophils 0.1 10^3/uL Normal 0-0.6 Abs Basophils 0.0 10^3/uL Normal 0-0.2 Abs Nucleated RBC 0.0 10^3/uL Granulocyte % 65.9 % Lymphocyte % 28.4 % Monocyte % 3.9 % Eosinophil % 1.3 % Basophil % 0.5 % Nucleated Red Blood Cells % 0.0 Iron & Iron Binding 06/17/2019 [facility] Iron 88 g/dL Normal 50-212 [address] [place] [address] [phone] Unsaturated Iron Binding < 278 g/dL Total Iron Binding Capacity 293 g/dL Normal 250-450 Transferrin 209 mg/dL Normal 203-362 % Iron Saturation 30 % Normal 15-55 Surgical 06/06/2019 [facility] Surgical SEE RESULT 6, 7 Pathology [address] [facility] [place] [place] [address] [phone] PDFReport [id number] <SEE NOTE> Lipid Profile 05/04/2019 [facility] Triglycerides 90 mg/dL 8 (Trig/Chol/HDL) [address] [place] [address] [phone] Cholesterol 150 mg/dL 9 HDL Cholesterol 45.0 mg/dL 10 LDL Cholesterol 87 mg/dL 11 Comp Metabolic 05/04/2019 [facility] Sodium 143 mmol/L Normal 135-145 Panel [address] [place] [address] [phone] Potassium 3.9 mmol/L Normal 3.5-5.0 Chloride 108 [...] Egfr Non- 91.0 >60 Egfr 110.2 >60 12 Laboratory test 03/08/2019 [facility] Ferritin 87.8 ng/mL Normal 11-[address] [place] [address] [phone] Iron & Iron 03/08/2019 [facility] Iron 42 g/dL Low 50-212 Binding Capacity [address] [place] [address] [phone] Unsaturated Iron Binding < 243 g/dL Total Iron Binding Capacity 258 g/dL Normal 250-450 Transferrin 184 mg/dL Low 203-362 % Iron Saturation 16 % Normal 15-55 CBC Auto 03/08/2019 [facility] White Blood 7.3 10^3/uL Normal 3.5-10.[address] [place] [address] [phone] Red Blood Count 4.36 10^6/uL Normal 3.70-4.87 [...] Nucleated Red Blood Cells % 0.1 Laboratory 02/25/2019 [facility] TSH (Thyroid 0.95 Normal 0.34 -5.[address] Stim Horm) mcIU/[place] [address] [phone] Comp Metabolic 02/25/2019 [facility] Sodium 143 mmol/L Normal 135-[address] [place] [address] [phone] Potassium 4.0 mmol/L Normal 3.5-5.0 Chloride 107 [...] Egfr Non- 83.7 >60 Egfr 101.3 >60 13 CBC Auto 02/25/2019 [facility] White Blood 8.7 10^3/uL Normal 3.5-10.[address] [place] [address] [phone] Red Blood Count 5.30 10^6/uL High 3.70-4.87 [...] Blood Cells % 0.1 Laboratory test 01/01/2019 [facility] Surgical SEE RESULT [address] [place] [address] [phone] Basic Metabolic 12/25/2018 [facility] Sodium 137 mmol/L Normal 135-[address] [place] [address] [phone] Potassium 3.9 mmol/L Normal 3.5-5.0 Chloride 101 mmol/L Normal 101-111 Co2 Carbon Dioxide 29 mmol/L Normal 22-32 Anion Gap 7 mmol/L Normal 2-11 Glucose 94 mg/dL Normal 70-100 Blood Urea Nitrogen 16 mg/dL Normal 6-24 Creatinine 0.70 mg/dL Normal 0.51-0.95 BUN/Creatinine Ratio 22.9 High 8-20 Calcium 9.5 mg/dL Normal 8.6-10.3 Egfr Non- 85.1 >60 Egfr 102.9 >60 15 CBC No Diff 12/25/2018 [facility] White Blood 9.8 10^3/uL Normal 3.5-10.[address] [place] [address] [phone] Red Blood Count 4.79 10^6/uL Normal 3.70-4.87 Hemoglobin 14.0 g/dL Normal 12.0-16.0 Hematocrit 41 % Normal 35-47 Mean Corpuscular Volume 86 fL Normal 80-97 Mean Corpuscular Hemoglobin 29 pg Normal 27-31 Mean Corpuscular HGB Conc 34 g/dL Normal 31-36 Red Cell Distribution Width 14 % Normal 10.5-15 Platelet Count 253 10^3/uL Normal 150-450 Mean Platelet Volume 8.8 fL Normal 7.4-10.4 1 Normal Range 180 to 914 Indeterminate Range 145 to 180 Deficient Range <145 2 Total 25-Hydroxyvitamin D2 and D3 (25-OH-VitD) <10 ng/mL (severe deficiency) 10-19 ng/mL (mild to moderate deficiency) 20-50 ng/mL (optimum levels) 51-80 ng/mL (increased risk of hypercalciuria) >80 ng/mL (toxicity possible) 3 ADDITIONAL INFORMATION This test was developed and its performance characteristics determined by [facility] in a manner consistent with CLIA requirements. This test has not been cleared or approved by the U.S. Food and Drug Administration. Test Performed by: [facility] [place] [address] Accordion Repairer: Demian Carvajal M.D. Ph.D.; CLIA# [id number] 4 ADDITIONAL INFORMATION This test was developed and its performance characteristics determined by [facility] in a manner consistent with CLIA requirements. This test has not been cleared or approved by the U.S. Food and Drug Administration. Test Performed by: [place] [address] Accordion Repairer: Demian Carvajal M.D. Ph.D.; CLIA# [id number] 5 Because ethnic data is not always readily [...] 15-29 5 Kidney failure <15 (or dialysis) 6 [id number] 7 SEE RESULT BELOW Name: SHALINI MANDEL : [address]: Amarilys Lloyd NP Acct: [id number] Unit: [id number] AGE: 64 Location: [facility] Re06/06/19 SEX: F Status: REG REF SPEC: [id number] ALYCIA: 06/06/[address] [facility] [address]: Edmundo Hassan MD REQ: [id number] RECD: 06/06/19 STATUS: AYANNA GARCIA DR: Amarilys Lloyd MOLDER OPERATOR _ ORDERED: LEVEL 4, IMMUNO-QUANT/4 COMMENTS: [id number] ADDENDUM Addendum: An immunohistochemical stain for PDL 1 performed with appropriate controls demonstrates 0% staining in tumor, 5% microenvironment. Addendum Signed (signature on file) Tony Mendes MD 1015 Immunohistochemical stains, with appropriately reacting controls, were performed with the following results: ER negative (less than 1%) PA negative (less than 1%) HER-2/lola negative (1+) Addendum Signed (signature on file) Damaris Triana MD 1651 FINAL DIAGNOSIS Breast, right, core biopsy: -- Invasive ductal adenocarcinoma of breast, with: Size: 4 mm. Tumor extent and distribution: Involves central portion of one of one sampled core. Estimated Mary grade: Estimated tubule formation: 3. Estimated nuclear grade: 2. Estimated mitotic count: 1. Combined Mary histologic grade: 2/3. (6/9 points). Lymphovascular invasion: Not identified. Ductal Carcinoma in situ (DCIS): Not identified. CONTINUED ON NEXT PAGE DEPARTMENT OF PATHOLOGY, [address] [place] [address] Tony Mendes M.D. Director [facility] # [id number] ER, PA, and Her2/Lola by immunohistochemistry with appropriate controls: ER: Pending; results will be reported in an addendum. PA: Pending; results will be reported in an addendum. Her2/Lola: Pending; results will be reported in an addendum. Microcalcifications: Not identified. Other findings: None. Predicted pTNM histopathologic stage: at least pT1a. COMMENT: Dr. Mendes reviewed this case in intradepartmental consultation and agrees with the diagnosis. CLINICAL HISTORY PRE-OPERATIVE DIAGNOSIS Right breast ultrasound guided core biopsy, solid 4 mm shadowing nodule 10: 00 position POST-OPERATIVE DIAGNOSIS History of breast carcinoma 2012 left breast GROSS DESCRIPTION The specimen is received in formalin labeled, Right Breast, and consists of a 2.4 by up to 0.3 cm yellow fibrofatty soft tissue core which is submitted entirely in one cassette. Signed by and Reported on: Damaris Triana MD 06/07/19 0955 END OF REPORT DEPARTMENT OF PATHOLOGY, [address] [place] [address] Tony Mendes M.D. Director [facility] # [id number] Desirable: <150 Borderline High: 150-199 High: 200-499 Very High: >500 9 Desirable: <200 Borderline High: 200-239 High: >239 10 Low: <40 Desirable: 40-60 High: >60 11 Desirable: <100 Near Optimal: 100-129 Borderline High: 130-159 High: 160-189 Very High: >189 12 Because ethnic data is not always readily [...] 15-29 5 Kidney failure <15 (or dialysis) 13 Because ethnic data is not always readily [...] 15-29 5 Kidney failure <15 (or dialysis) 14 SEE RESULT BELOW Name: MINISTERIOSHALINI : [address]: Dl Grant MD Acct: [id number] Unit: [id number] AGE: 63 Location: [place] [address] Re01/01/19 SEX: F Status: ADM IN SPEC: [id number] ALYCIA: 01/01/19- [facility] DR: Dl Grant MD REQ: [id number] RECD: 01/01/19 STATUS: SOUT _ ORDERED: LEVEL 5 FINAL [...] is glistening almanza-red with normal rugal folds. Staffing Specialist sections, one cassette. Signed by and Reported on: Damaris Triana MD 01/02/19 1428 END OF REPORT DEPARTMENT OF PATHOLOGY, [address] [place] [address] Tony Mendes M.D. Director [facility] # [id number] 15 Because ethnic data is not always readily [...] 15-29 5 Kidney failure <15 (or dialysis) Procedures Date Code Description Status 05/17/2019 55080 Admin & Interp Of Health Risk Assessment w/ Patient Completed 05/07/2019 10478 Cardioversion Completed 05/06/2019 46554 EKG Tracing & Interpretation Completed 02/25/2019 09682 EKG Tracing & Interpretation Completed 10/17/2018 [id number] Colonoscopy Completed 01/26/2018 [id number] Mammogram Completed 01/25/2017 [id number] Mammogram Completed 01/25/2016 39659025 Mammogram Completed 01/22/2015 [id number] Mammogram Completed 01/21/2014 12756982 Mammogram Completed 01/21/2013 79991724 Mammogram Completed 02/06/2012 [id number] Mammogram Completed 02/01/2012 [id number] Mammogram Completed 07/20/2010 66720090 Mammogram Completed 07/20/2010 033825706 Bone Mineral Density Test Completed 03/20/2008 81431439 Mammogram Completed 10/31/2007 [id number] Colonoscopy Completed Medical Devices Description No Information Available Encounters Type Date Location Provider Dx Diagnosis Office Visit 02/25/2019 Certified Legal Investigator Internal Amarilys Lloyd, N.P. R00.2 Palpitations 3:40p Medicine - Ccmob I48.1 Persistent atrial fibrillation Assessments Date Code Description Provider 05/17/2019 Z00.00 Encounter for general adult medical examination Amarilys Lloyd, N.P. without abnormal findings 05/17/2019 I48.0 Paroxysmal atrial fibrillation Amarilys Lloyd, N.P. 05/17/2019 I10 Essential (primary) hypertension Amarilys Lloyd, N.P. 05/17/2019 F41.9 Anxiety disorder, unspecified Amarilys Lloyd, N.P. 05/17/2019 Z85.3 Personal history of malignant neoplasm of Amarilys Lloyd, N.P. breast 05/17/2019 E78.00 Pure hypercholesterolemia, unspecified Amarilys Lloyd, N.P. 05/17/2019 K21.9 Gastro-esophageal reflux disease without Amarilys Lloyd, N.P. esophagitis 05/17/2019 Z98.84 Bariatric surgery status Amarilys Lloyd N.PDemarcus 05/17/2019 G47.00 Insomnia, unspecified Danis Rivas.Flash 05/06/2019 I48.0 Paroxysmal atrial fibrillation Nurse Visit IC 02/25/2019 I48.1 Persistent atrial fibrillation Herminia Rock MD 02/25/2019 R00.2 Palpitations Amarilys Lloyd N.P. 02/25/2019 I48.1 Persistent atrial fibrillation Amarilys Lloyd N.P. Plan of Treatment Future Appointment(s):06/01/2020 9:20 am - Amarilys Lloyd N.P. at [facility] Functional Status Description No Information Available Mental Status Description No Information Available Referrals Refer to Reason for Referral Status Appt Date Jose Snyder MD Patient is in atrial fibrillation. She had Sent bariatric surgery in December. Has been compliant with her vitamins. I started her on Xarelto 20 mg. Patient is referred for management. Thank you for seeing this very pleasant patient. [address] [place] [phone]
[2019-07-03] MEDS ORDERED: NS 0.9% 1000 ML** 1,000 ML IV ONE (18:02)
[2019-07-03] MEDS ORDERED: Ondansetron INJ* 2 MG/ML VIAL IV ONE (18:02)
--- NOTE | 2019-07-03 18:02 | ED ---
Abdominal Pain/Female - HPI Summary HPI Summary: 64 yo female presents to [facility] ED with RUQ pain. She tells me that around 1030 this morning she developed aching and stabbing RUQ pain and nausea that was accompanied by dry heaves. She stopped dry heaving around 1230. She saw her PCP around 1500 and was advised to come to the ED for her RUQ pain. Since arriving at the ED her pain has significantly improved and is only mild currently. She is still slightly nauseous, but has no more episodes of dry heaves or vomiting. She reports that she had a gastric sleeve procedure done in December 2018 by [facility] and has been doing well since - no complications. This morning she had a protein shake around 0730 and yogurt around 1030 prior to her symptoms. She denies fever , chills, SOB, chest pain, dysuria, back pain. - History of Current Complaint Chief Complaint: EDAbdPain Stated Complaint: ABD PAIN PER PT Time Seen by Provider: 07/03/19 18:01 Hx Obtained From: Patient Onset/Duration: Sudden Onset Timing: Constant Severity Initially: Moderate Severity Currently: Mild Pain Intensity: 5 Pain Scale Used: 0-10 Numeric Allergies/Adverse Reactions: Allergies Allergy/AdvReac Type Severity Reaction Status Date / Time codeine AdvReac Intermediate Nausea And Verified 06/06/19 09:46 Vomiting chlorprep Allergy Rash Uncoded 06/06/19 11:29 Home Medications: Home Medications Multivitamins/Minerals TAB* [Thera M Plus TAB*] 1 tab PO DAILY 07/03/19 [ History Confirmed 07/03/19] Rivaroxaban TAB(*) [Xarelto 20 mg] 20 mg PO DAILY 07/03/19 [History Confirmed ] PMH/Surg Hx/FS Hx/Imm Hx Endocrine/Hematology History: Denies: Hx Diabetes, Hx Systemic Lupus Erythematosus Cardiovascular History: Reports: Hx Hypertension - ON DAILY MEDS STATES WELL CONTROLLED Denies: Hx Congestive Heart Failure, Hx Pacemaker/ICD Comment Only: Other Cardiovascular Problems/Disorders - AFIB Respiratory History: Reports: Hx Sleep Apnea Denies: Other Respiratory Problems/Disorders GI History: Reports: Hx Gastroesophageal Reflux Disease Denies: Other GI Disorders History: Reports: Other Problems/Disorders - UTIs in past Denies: Hx Dialysis, Hx Renal Disease Musculoskeletal History: Reports: Hx Arthritis - KNEES, STATES MILD ALL JOINTS, Hx Bursitis - Hx of shoulder Denies: Hx Rheumatoid Arthritis Sensory History: Denies: Hx Contacts or Glasses, Hx Hearing Aid Opthamlomology History: Denies: Hx Contacts or Glasses Neurological History: Denies: Other Neuro Impairments/Disorders Psychiatric History: Reports: Hx Anxiety - ON DAILY MEDS, Hx Panic Disorder - ANXIETY - Cancer History Cancer Type, Location and Year: LEFT BREAST Hx Chemotherapy: Yes Hx Radiation Therapy: No - Surgical History Surgical History: Yes Surgery Procedure, Year, and Place: 02/2012 Lt MASTECTOMY, [facility]. 1980 & C- SECTION [facility]. 1989 LEFT BREAST LUMPECTOMY CANCER [facility]. 1998 hysterectomy, [facility]. 2010 L knee surgery [facility]. 02/2012 LEFT BREAST MASTECTOMY [facility]. 07/2012 RECONSTRUCTION LEFT & RT BREAST [facility]. 08/2014 RIGHT KNEE REPAIR [facility]. Sleeve 2018 Hx Anesthesia Reactions: No Infectious Disease History: No Infectious Disease History: Denies: Hx Clostridium Difficile, Hx Hepatitis, Hx Human Immunodeficiency Virus (HIV), Hx of Known/Suspected MRSA, Hx Shingles, Hx Tuberculosis, History Other Infectious Disease, Traveled Outside the in Last 30 Days - Family History Known Family History: Positive: Hypertension - Social History Occupation: Employed Full-time Lives: With Family Alcohol Use: None Substance Use Type: Reports: None Smoking Status (MU): Former Smoker Type: Cigarettes Amount Used/How Often: LESS THEN 1/2PPD 30 YRS Length of Time of Smoking/Using Tobacco: 30 YRS Have You Smoked in the Last Year: No Review of Systems Constitutional: Negative Cardiovascular: Negative Respiratory: Negative Positive: Abdominal Pain, Nausea Genitourinary: Negative Musculoskeletal: Negative Skin: Negative Neurological: Negative Psychological: Normal All Other Systems Reviewed And Are Negative: No Physical Exam - Summary Physical Exam Summary: GENERAL: NAD. WDWN. No pain distress. SKIN: No rashes, sores, or open wounds. NECK: Supple. Nontender. No lymphadenopathy. CHEST: CTAB. No r/r/w. No accessory muscle use. Breathing comfortably and in no distress. CV: RRR. Pulses intact. Brisk cap refill. ABDOMEN: RUQ mild TTP. Weakly positive bueno sign. Soft. No distention or guarding. No CVA tenderness. Bowel sounds present MSK: FROM and 5/5 strength throughout. No edema. NEURO: Alert. PSYCH: Age appropriate behavior. Triage Information Reviewed: Yes Vital Signs On Initial Exam: Initial Vitals Temp Pulse Resp BP Pulse Ox 97.0 F 58 16 142/63 99 07/03/19 16:50 07/03/19 16:50 07/03/19 16:50 07/03/19 16:50 07/03/19 16:50 Vital Signs Reviewed: Yes Procedures - Sedation Patient Received Moderate/Deep Sedation with Procedure: No Diagnostics - Vital Signs Vital Signs Temp Pulse Resp BP Pulse Ox 07/03/19 16:50 97.0 F 58 16 142/63 99 - Laboratory Lab Results: Laboratory Tests 07/03/19 07/03/19 07/03/19 17:46 17:46 17:46 WBC 12.3 H RBC 4.51 Hgb 14.0 Hct 40 MCV 89 MCH 31 MCHC 35 RDW 13 Plt Count 214 MPV 9.5 Neut % (Auto) 86.4 Lymph % (Auto) 10.1 [place] % (Auto) 3.0 Eos % (Auto) 0.1 Baso % (Auto) 0.4 Absolute Neuts (auto) 10.6 H Absolute Lymphs (auto) 1.2 Absolute Monos (auto) 0.4 Absolute Eos (auto) 0.0 Absolute Basos (auto) 0.0 Absolute Nucleated RBC 0.0 Nucleated RBC % 0.0 Sodium 140 Potassium 4.1 Chloride 106 Carbon Dioxide 29 Anion Gap 5 BUN 14 Creatinine 0.58 Est GFR ( Amer) 127.5 Est GFR (Non-Af Amer) 105.3 BUN/Creatinine Ratio 24.1 H Glucose 116 H Lactic Acid 0.8 Calcium 9.3 Total Bilirubin 1.00 AST 247 H ALT 165 H Alkaline Phosphatase 115 H C-Reactive Protein 12.25 H Total Protein 7.2 Albumin 4.0 Globulin 3.2 Albumin/Globulin Ratio 1.3 Lipase 148 H Result Diagrams: 07/03/19 17:46 07/03/19 17:46 Lab Statement: Any lab studies that have been ordered have been reviewed, and results considered in the medical decision making process. - Ultrasound . Ultrasound Interpretation Completed By: Radiologist Gallbladder Ultrasound Interpretation Completed By: Radiologist Abdominal Pain Fem Course/Dx - Course Course Of Treatment: Labs as above. Discussed case with Dr. Taveras and he is going to admit the pt for abnormal LFTs and RUQ pain while awaiting US. - Diagnoses Provider Diagnoses: RUQ pain, Abnormal LFTs Discharge ED - Sign-Out/Discharge Documenting (check all that apply): Patient Departure - Discharge Plan Condition: Stable Disposition: ADMITTED TO [facility] Referrals: Amarilys Lloyd NP [Primary Care Provider] - - Billing Disposition and Condition Condition: STABLE Disposition: Admitted to [facility] - Attestation Statements Provider Attestation: I was available for consult. This patient was seen by the WENDI. The patient was not presented to, seen by, or examined by me. Delfino Lawton MD Consult Consult: Discussed with Dr. Taveras 1829 and he recommends US, B1 level, and banana bag in addition to labs already drawn. 0 - discussed labs with Dr. Taveras and he is going to admit the pt for abnormal LFTs and RUQ pain - still waiting US. Pt agreeable to this.
[2019-07-03 18:20] LABS: ABS Lymphocytes 1.2 10^3/ul (1.0-4.8); ABS Monocytes 0.4 10^3/ul (0-0.8); ABS Neutrophils 10.6 10^3/ul (1.5-7.7); Eosinophil % 0.1 %; Hematocrit 40 % (35-47); Lymphocyte % 10.1 %; Mean Corpuscular HGB Conc 35 g/dL (31-36); Mean Corpuscular Hemoglobin 31 pg (27-31); Mean Corpuscular Volume 89 fL (80-97); Mean Platelet Volume 9.5 fL (7.4-10.4); Platelet Count 214 10^3/uL (150-450); Red Blood Count 4.51 10^6 /uL (3.70-4.87); Red Cell Distribution Width 13 % (10-15); White Blood Count 12.3 10^3/uL (3.5-10.8)
[2019-07-03] MEDS ORDERED: Thiamine IV 100 MG, Folic Acid IV* 1 MG, Multiple Vitamin IV ADULT* 10 ML in NS 0.9% 10... IV ONE (18:28)
[2019-07-03 18:52] LABS: Albumin/Globulin Ratio 1.3 (1-3); BUN/Creatinine Ratio 24.1 (8-20); C Reactive Protein 12.25 mg/L (<8.01); Calcium 9.3 mg/dL (8.6-10.3); EGFR African American 127.5 (>60); EGFR Non-African American 105.3 (>60); Globulin 3.2 g/dL (2-4); Potassium 4.1 mmol/L (3.5-5.0); Total Protein 7.2 g/dL (6.4-8.9)
[2019-07-03] MEDS ORDERED: Ondansetron INJ* 2 MG/ML VIAL IV PRN (19:26)
[2019-07-03] MEDS ORDERED: Morphine INJ* 2 MG/ML 1 ML SYRINGE (TWO MG - NEW SYRINGE VERSION) IV PRN (19:29)
[2019-07-03 20:45] LABS: Urine Appearance Cloudy; Urine Bilirubin Negative (Negative); Urine Blood Negative (Negative); Urine Color Yellow; Urine Glucose Negative (Negative); Urine Ketones Negative (Negative); Urine Nitrite Negative (Negative); Urine Protein Negative (Negative); Urine Specific Gravity 1.014 (1.010-1.030); Urine Urobilinogen Negative (Negative)
--- NOTE | 2019-07-03 21:39 | HP ---
CC: Primary Care Doctor; [facility] * HISTORY AND PHYSICAL: DATE OF ADMISSION: 07/03/19 The patient was seen in the ER. HISTORY OF PRESENT ILLNESS: I was contacted by the emergency room staff regarding Shalini Jimenez, a 64-year-old female, 6 months status post sleeve gastrectomy, who is complaining of severe abdominal pain. I had heard about her case earlier in the day when Meri Greenwood, nurse practitioner, contacted me after she was evaluated at the bariatric center with notable severe upper abdominal pain. The patient describes acute onset of abdominal pain radiating to the back and possibly back pain starting prior to the abdominal pain. It doubled her over. She denied any similar symptoms. Pain was relieved with nothing, but pain was resolved by the time I saw her. The patient denied any fevers or chills. She had decreased appetite. She was passing gas. The patient is status post sleeve gastrectomy and has lost about 80 pounds since starting the program. She successfully followed up. She was uneventful and discharged home on postoperative day 2 according to the patient. PAST MEDICAL HISTORY: Gastroesophageal reflux disease, fatty liver disease, atrial fibrillation, hypertension. PAST SURGICAL HISTORY: Hysterectomy, , knee arthroscopy, mastectomy on the left for breast cancer in 2012. She is scheduled for a mastectomy on the right due to a new finding on recent breast biopsy. She also underwent oophorectomy and a sleeve gastrectomy as described above. MEDICATIONS: Include: 1. Xarelto. 2. Multivitamins. 3. Alprazolam. 4. Iron. 5. Ketoconazole cream. 6. The patient was on proton pump inhibitor in the early postoperative course, but stopped this. ALLERGIES: She is allergic to CODEINE and CHLORAPREP. FAMILY HISTORY: Noncontributory. No family history of gallbladder disease. SOCIAL HISTORY: She is a nonsmoker. She works at [employer]. She is , lives with her spouse. She occasionally drinks alcohol. REVIEW OF SYSTEMS: No headache, no shortness of breath, no chest pain. Back pain as described. Abdominal pain as described. History of GERD. No irritable bowel symptoms. No dysuria. No dark colored urine. No light colored stools. No endocrine disorders other than obesity. Metabolic disorder that had been treated with the weight loss surgery. No rheumatoid disorders. No psychiatric illnesses. PHYSICAL EXAMINATION GENERAL: She is alert and oriented x3. No apparent distress. VITAL SIGNS: She is afebrile. Vital signs are stable. HEENT: Normocephalic, atraumatic. Sclerae anicteric. Mucous membranes are moist. NECK: No lymphadenopathy. LUNGS: Clear to auscultation bilaterally. ABDOMEN: Soft, nondistended. Mildly tender on deep palpation in the right upper quadrant. No hernias or masses noted. Well-healed surgical incisions. No CVA tenderness. EXTREMITIES: Within normal limits. RECTAL: Exam not performed. BREAST: Exam not performed. DIAGNOSTIC STUDIES/LAB DATA: The patient underwent labs, show a white count of 12.3 with mild left shift. Basic metabolic panel is normal. Mildly elevated glucose. Lactic acid normal with elevated transaminases and elevated lipase of 148, reference range is less than 82, and elevated alk phos. T bili is 1. The patient is undergoing ultrasound now. Review of the images shows gallstones. I did discuss with the instrument/control technician who thinks the common bile duct may be 0.9 cm. IMPRESSION: Cholecystitis, rule out choledocholithiasis or possibly passed common bile duct stone. PLAN/RECOMMENDATIONS: Admission, IV fluids, n.p.o. status, and repeat labs in the morning with possible MRCP versus possible surgery of laparoscopic cholecystectomy. I discussed this with the patient. She has a diagnosis of pancreatitis as well, but we will not undergo CAT scan given her clinical findings at this time. She is relatively pain free at this point, but does agree to the admission. She understands that possibly me or my partner would perform a laparoscopic cholecystectomy if we were to do this on this admission. She may also warrant a transfer if she does have common bile duct stones that cannot be dealt with with our gastroenterology group. No antibiotics for now. Full set of repeat labs in the morning and follow up as described above. [id number]/[facility] #: [id number] MTDD
[2019-07-03] MEDS: NS 0.9% 1000 ML** 1,000 ML IV SCH (23:40)
[2019-07-04 05:24] LABS: ABS Eosinophils 0.1 10^3/ul (0-0.6); ABS Lymphocytes 1.9 10^3/ul (1.0-4.8); ABS Monocytes 0.3 10^3/ul (0-0.8); ABS Neutrophils 4.8 10^3/ul (1.5-7.7); Eosinophil % 1.2 %; Hematocrit 37 % (35-47); Hemoglobin 12.6 g/dL (12.0-16.0); Lymphocyte % 26.1 %; Mean Corpuscular HGB Conc 35 g/dL (31-36); Mean Corpuscular Hemoglobin 31 pg (27-31); Mean Corpuscular Volume 89 fL (80-97); Mean Platelet Volume 9.4 fL (7.4-10.4); Platelet Count 173 10^3/uL (150-450); Red Blood Count 4.12 10^6 /uL (3.70-4.87); Red Cell Distribution Width 13 % (10-15); White Blood Count 7.2 10^3/uL (3.5-10.8)
[2019-07-04 05:40] LABS: Albumin 3.2 g/dL (3.2-5.2); Albumin/Globulin Ratio 1.2 (1-3); Calcium 8.2 mg/dL (8.6-10.3); EGFR African American 151.3 (>60); Globulin 2.6 g/dL (2-4); Potassium 3.6 mmol/L (3.5-5.0); Total Bilirubin 0.7 mg/dL (0.2-1.0); Total Protein 5.8 g/dL (6.4-8.9)
[2019-07-04] MEDS: NS 0.9% 1000 ML** 1,000 ML IV SCH ×2 (08:05→18:30)
--- NOTE | 2019-07-04 09:38 | PN ---
Progress Note - Progress Note Date of Service: 07/04/19 SOAP: Subjective:no current abd or back pain,no nausea or vomiting,ambulating [] Objective: Vital Signs Temp 97.9 F 07/04/19 04:57 Pulse 62 07/04/19 07:48 Resp 16 07/04/19 07:48 BP 120/82 07/04/19 07:48 Pulse Ox 99 07/04/19 04:57 Intake & Output 07/03/19 07/04/19 07/04/19 18:59 06:59 18:59 Intake Total 1000 980 Output Total 0 Balance 1000 980 Weight 200 lb 200 lb Intake: IV Fluids 1000 980 NS (0.9%) 980 Oral 0 Output: Urine 0 lungs:clear bilat;heart:RRR;abd:+bs,soft,nondistended;nontender to deep palpation,neg Mendez's;well healed surgical scars s/p lap sleeve 6 months ago; ext:no edema,nontender calves Laboratory Last Values WBC 7.2 10^3/uL (3.5-10.8) 07/04/19 04:59 RBC 4.12 10^6 /uL (3.70-4.87) 07/04/19 04:59 Hgb 12.6 g/dL (12.0-16.0) 07/04/19 04:59 Hct 37 % (35-47) 07/04/19 04:59 MCV 89 fL (80-97) 07/04/19 04:59 MCH 31 pg (27-31) 07/04/19 04:59 MCHC 35 g/dL (31-36) 07/04/19 04:59 RDW 13 % (10-15) 07/04/19 04:59 Plt Count 173 10^3/uL (150-450) 07/04/19 04:59 MPV 9.4 fL (7.4-10.4) 07/04/19 04:59 Neut % (Auto) 67.7 % 07/04/19 04:59 Lymph % (Auto) 26.1 % 07/04/19 04:59 Woods % (Auto) 4.7 % 07/04/19 04:59 Eos % (Auto) 1.2 % 07/04/19 04:59 Baso % (Auto) 0.3 % 07/04/19 04:59 Absolute Neuts (auto) 4.8 10^3/ul (1.5-7.7) 07/04/19 04:59 Absolute Lymphs (auto) 1.9 10^3/ul (1.0-4.8) 07/04/19 04:59 Absolute Monos (auto) 0.3 10^3/ul (0-0.8) 07/04/19 04:59 Absolute Eos (auto) 0.1 10^3/ul (0-0.6) 07/04/19 04:59 Absolute Basos (auto) 0.0 10^3/ul (0-0.2) 07/04/19 04:59 Absolute Nucleated RBC 0.0 10^3/ul 07/04/19 04:59 Nucleated RBC % 0.0 07/04/19 04:59 Sodium 141 mmol/L (135-145) 07/04/19 04:59 Potassium 3.6 mmol/L (3.5-5.0) 07/04/19 04:59 Chloride 112 mmol/L (101-111) H 07/04/19 04:59 Carbon Dioxide 25 mmol/L (22-32) 07/04/19 04:59 Anion Gap 4 mmol/L (2-11) 07/04/19 04:59 BUN 10 mg/dL (6-24) 07/04/19 04:59 Creatinine 0.50 mg/dL (0.51-0.95) L 07/04/19 04:59 Est GFR ( Amer) 151.3 (>60) 07/04/19 04:59 Est GFR (Non-Af Amer) 125.0 (>60) 07/04/19 04:59 BUN/Creatinine Ratio 20.0 (8-20) 07/04/19 04:59 Glucose 90 mg/dL (70-100) 07/04/19 04:59 Lactic Acid 0.8 mmol/L (0.5-2.0) 07/03/19 17:46 Calcium 8.2 mg/dL (8.6-10.3) L 07/04/19 04:59 Total Bilirubin 0.70 mg/dL (0.2-1.0) 07/04/19 04:59 AST 93 U/L (13-39) H 07/04/19 04:59 ALT 108 U/L (7-52) H 07/04/19 04:59 Alkaline Phosphatase 89 U/L (34-104) 07/04/19 04:59 C-Reactive Protein 12.25 mg/L (<8.01) H 07/03/19 17:46 Total Protein 5.8 g/dL (6.4-8.9) L 07/04/19 04:59 Albumin 3.2 g/dL (3.2-5.2) 07/04/19 04:59 Globulin 2.6 g/dL (2-4) 07/04/19 04:59 Albumin/Globulin Ratio 1.2 (1-3) 07/04/19 04:59 Lipase 33 U/L (11.0-82.0) 07/04/19 04:59 Urine Color Yellow 07/03/19 20:28 Urine Appearance Cloudy 07/03/19 20:28 Urine pH 7.0 (5-9) 07/03/19 20:28 Ur Specific [place] 1.014 (1.010-1.030) 07/03/19 20:28 Urine Protein Negative (Negative) 07/03/19 20:28 Urine Ketones Negative (Negative) 07/03/19 20:28 Urine Blood Negative (Negative) 07/03/19 20:28 Urine Nitrate Negative (Negative) 07/03/19 20:28 Urine Bilirubin Negative (Negative) 07/03/19 20:28 Urine Urobilinogen Negative (Negative) 07/03/19 20:28 Ur Leukocyte Esterase Negative (Negative) 07/03/19 20:28 Urine Glucose Negative (Negative) 07/03/19 20:28 [] Assessment:elevated transaminases and gallbladder sono with cholelithiasis and mild gallbladder wall thickening;likely passed gallstone,now pain free;she was on Xarelto prior to admission for hx atrial fibrillation,last dose 07/03/19 am [] Plan:per to OR tomorrow 07/05/19 for laparoscopic cholecystectomy, discussed with patient and agrees;NPO at present;will check with regarding clears today and whether Heparin sq should be started []
[2019-07-04] MEDS ORDERED: Buffered Lidocaine 1% SYRIN* 1 ML/SYRINGE INTRADERM ONE (16:32)
[2019-07-05] MEDS: NS 0.9% 1000 ML** 1,000 ML IV SCH (01:31)
[2019-07-05] MEDS: Lactated Ringers 1000 ML Bag* 1,000 ML IV SCH ×2 (06:41→21:23)
[2019-07-05] MEDS ORDERED: Heparin VIAL(*) 5000 UNITS/ML VIAL (FIVE THOUSAND) SUBCUT ONE (07:00)
[2019-07-05 07:07] LABS: Albumin 3.6 g/dL (3.2-5.2); Albumin/Globulin Ratio 1.2 (1-3); Globulin 2.9 g/dL (2-4); Indirect Bilirubin 0.6 mg/dL (0.3-1.0); Total Bilirubin 0.8 mg/dL (0.2-1.0); Total Protein 6.5 g/dL (6.4-8.9)
--- NOTE | 2019-07-05 08:51 | PN ---
Progress Note - Progress Note Date of Service: 07/05/19 SOAP: Subjective: No pain. Hungry. Concerned about having to have breast surgery on Jul.22 and wonders if GB could be addressed then. Objective: Vital Signs Temp 97.9 F 07/05/19 07:25 Pulse 48 07/05/19 07:25 Resp 18 07/05/19 08:00 BP 133/65 07/05/19 07:25 Pulse Ox 100 07/05/19 07:25 Gen: NAD Abd: scars noted; ND; soft; NT. Intake & Output 07/04/19 07/05/19 07/05/19 18:59 06:59 18:59 Intake Total 980 1586 Output Total 1000 2750 Balance -20 -1164 Weight 200 lb Intake: IV Fluids 980 1486 NS (0.9%) 980 1486 Oral 0 100 Output: Urine 1000 2750 Laboratory Results - last 24 hr 07/05/19 06:24 Total Bilirubin 0.80 Direct Bilirubin 0.20 H Indirect Bilirubin 0.6 AST 45 H ALT 78 H Alkaline Phosphatase 100 Total Protein 6.5 Albumin 3.6 Globulin 2.9 Albumin/Globulin Ratio 1.2 Assessment: Passed CBD stone. LFTs cont to improve. Plan: Lap angi planned for later today. Procedure/I/R/B/A and option of no treatment discussed. Risks explained incl, not ltd to: bleeding, infection, pain, scars, blood clots, pneumonia, visceral injury and risks of GETA. All questions answered and she agrees to proceed.
[2019-07-05] MEDS ORDERED: Bupivacaine 0.25% EPI 200,000* 30 ML SDV ONE (16:55)
[2019-07-05] MEDS ORDERED: fentaNYL* 50 MCG/ML 2 ML VIAL (100 MCG VIAL) ONE (17:22)
[2019-07-05] MEDS ORDERED: Midazolam* 1 MG/ML 2 ML VIAL (2 MG) ONE (17:22)
[2019-07-05] MEDS ORDERED: Ondansetron INJ* 2 MG/ML VIAL ONE (17:42)
[2019-07-05] MEDS ORDERED: Succinylcholine* 20 MG/ML 10 ML VIAL ONE (17:42)
[2019-07-05] MEDS ORDERED: Propofol* 10 MG/ML 20 ML BTL ONE (17:42)
[2019-07-05] MEDS ORDERED: Dexamethasone IV* 4 MG/ML 1 ML (4 MG) ONE (17:42)
[2019-07-05] MEDS ORDERED: Cisatracurium* 2 MG/ML MDV 5 ML ONE (17:45)
[2019-07-05] MEDS ORDERED: Ketorolac INJ* 30 MG/ML 1 ML VIAL ONE (18:46)
[2019-07-05] MEDS ORDERED: Naloxone* 0.4 MG/ML 1 ML VIAL IV PRN (18:47)
[2019-07-05] MEDS ORDERED: Ketorolac INJ* 30 MG/ML 1 ML VIAL IV PRN (18:47)
[2019-07-05] MEDS ORDERED: PROCHLORPERAZINE INJ 5 MG/ML 2 ML VIAL IV PRN (18:47)
[2019-07-05] MEDS ORDERED: HYDROmorphone INJ1* 1 MG/ML SYRINGE ONE (18:58)
[2019-07-05] MEDS: HYDROmorphone INJ1* 1 MG/ML SYRINGE IV PRN ×5 (19:03→19:45)
[2019-07-05] MEDS ORDERED: hydrALAZINE IV* 20 MG/ML VIAL ONE (19:32)
[2019-07-05] MEDS: HYDROcodone/ACETAMIN 5-325 MG* 1 TAB PO PRN (22:28)
[2019-07-06] MEDS: HYDROcodone/ACETAMIN 5-325 MG* 1 TAB PO PRN (04:19)
[2019-07-06] MEDS: Lactated Ringers 1000 ML Bag* 1,000 ML IV SCH (04:21)
[2019-07-06 08:34] VITALS: BP 103/43
--- NOTE | 2019-07-06 11:02 | PN ---
Progress Note - Progress Note Date of Service: 07/06/19 Note: Feeling well this morning. Tolerating crackers and liquids. Has been out of bed. Incisional pain is minimal. No nausea or vomiting. Feels ready for discharge. Temp Pulse Resp BP Pulse Ox 98.3 F 48 18 103/43 100 07/06/19 08:32 07/06/19 08:32 07/06/19 08:41 07/06/19 08:32 07/06/19 08:38 General: No acute distress Abdomen: soft, nondistended, mild tenderness to palpation around incisions. Incisions clean and dry with steri strips. Neuro: Alert, oriented x3 A&P 64F with gallstone pancreatitis s/p lap angi POD 1. Doing well. -Regular diet as tolerated. Activity as tolerated -D/c to home today.
--- NOTE | 2019-07-07 22:53 | DS ---
ADMIT DATE: 07/03/19 DISCHARGE DATE: 07/06/19 DISCHARGE DIAGNOSIS: Choledocholithiasis REASON FOR ADMISSION: Choledocholithiasis PATIENT CONDITION ON DISCHARGE: Stable PERTINENT PHYSICAL FINDINGS: Tenderness over incisions PROCEDURE: Laparoscopic cholecystectomy HOSPITAL COURSE: Shalini Jimenez is a 64 year old woman who is s/p gastric sleeve 6 months ago who presented with severe abdominal pain. Her total bilirubin was 1, and LFTs and lipase were mildly elevated. She was admitted and kept NPO. Ultrasound showed cholelithiasis. By the next day, the total bilirubin was trending down. She was brought to the OR on 07/05/19 for laparoscopic cholecystectomy by Dr Grant. She recovered in the PACU and was transferred to the floor. By POD 1, pain was well-controlled. She was tolerating a regular diet and ambulating without difficulty. She was deemed medically ready for discharge to home. DISPOSITION: Home DISCHARGE INSTRUCTIONS FOLLOWING LAPAROSCOPIC CHOLECYSTECTOMY (REMOVAL OF GALL BLADDER) OFFICE VISIT: Call the office at [phone] for an appointment as soon as possible after discharge. You should be seen in the office in 1 week. DIET: During the first few weeks after surgery, it is advisable to avoid fried and fatty foods. Dairy products may also cause you some discomfort. Be patient and give your digestive system time to adjust. Eat a light diet. You may find that smaller, more frequent meals may be more helpful. WOUND CARE: * Shower daily. Wash over incision with regular soap and water. * Leave the skin tapes (steri-strips) on until they begin to loosen and curl on the ends. Then you may gently ease the tapes off, starting at both ends and working toward the incision. As the surgical wound heals, there is likely to be slight swelling, redness, or bruising of the skin. A few days later, the incision may feel lumpy. All of these are normal, and all of them will disappear in time. PLEASE CALL THE OFFICE SOON POSSIBLE IF ANY OF THE FOLLOWING OCCUR: * Sharp increase in pain, redness or swelling of the incision. * Presence of any wound drainage: yellow fluid, bright red blood, or pus (cream- colored drainage). * Fever over 101 degrees orally. ACTIVITY: * Gradually increase activity within your tolerance. * Walking is the best exercise for you at this time. * Climbing stairs is fine, but go slowly at first. * Do not lift anything heavier than 10 pounds for 1 week. This is an estimation ; therefore, use your judgment. * Do not drive a car until all of your pain is gone and your energy level is normal. LAPAROSCOPIC DISCOMFORT: You may experience some discomfort in your shoulders, chest or back for a few days. This is a common occurrence and is harmless. This discomfort is caused by carbon dioxide used to inflate the abdomen. The discomfort will disappear when the gas is absorbed by the body. PAIN MEDICATION CAUTION: Your pain medicine may contain a narcotic (i.e. Codeine ). This can cause drowsiness and constipation. Do not drink alcohol, drive a car or work around machines while taking the medicine. Drink plenty of liquids to help prevent constipation. You may use Milk of Magnesia to relieve constipation. MEDICATIONS: Please see Reconciliation Form for usual medications IF YOU HAVE ANY QUESTIONS OR PROBLEMS PLEASE FEEL FREE TO CALL THE OFFICE AT TO TALK WITH ONE OF OUR DOCTORS OR NURSES. OUR ANSWERING SERVICE IS AVAILABLE 24 HOURS/DAY.
--- NOTE | 2019-07-09 09:10 | OP ---
CC: [facility]; Amarilys Lloyd NP * DATE OF OPERATION: 07/05/19 - ROOM #349 DATE OF : 59 SURGEON: Dl Grant MD FRONT OFFICE MEDICAL ASSISTANT: Dr. Porter. ANESTHESIOLOGIST: Dr. Olivares. ANESTHESIA: General endotracheal. PRE-OP DIAGNOSIS: Symptomatic gallstones. POST-OP DIAGNOSIS: Symptomatic gallstones. OPERATIVE PROCEDURE: Laparoscopic cholecystectomy. ESTIMATED BLOOD LOSS: Minimal. IV FLUIDS: Crystalloid. SPECIMENS: Gallbladder. DRAINS: None. COMPLICATIONS: None. COUNTS: The instrument, needle and sponge counts were correct. DESCRIPTION OF PROCEDURE: The patient was brought to the operating room and placed on the table supine. Sequential compression devices were placed on both lower extremities. General anesthesia was administered. The patient was positioned and padded appropriately. She received appropriate intravenous antibiotics. She was prepped and draped in usual sterile fashion and timeout was performed. Local anesthetic was infiltrated into the skin and subcutaneous tissue prior to making each incision. Entry into the abdomen was through a supraumbilical incision using an open technique. After accessing the peroneal cavity a 12 mm trocar was placed and carbon dioxide was infiltrated to a pressure 15 mmHg. Under direct visualization three 5 mm trocars were placed, one in the subxiphoid position into the right upper quadrant. A 0 degree 5 mm laparoscope was used. The inspection revealed a normal-appearing liver, gallbladder did not appear to be acutely inflamed. The gallbladder was grasped at the fundus retracted cephalad, the infundibulum was identified, peritoneum invested, the gallbladder was incised with sharp dissection and cautery, dissected free from the gallbladder wall on both medial and lateral aspects to identify the cystic duct and also the cystic artery. After critical view was obtained, the cystic duct and cystic artery were doubly clipped and divided. The gallbladder was freed from attachments to the liver using the cautery and sharp dissection staying in an avascular plane. Once the gallbladder was free it was retrieved using endoscopic retrieval bag and then the hemostasis was assured. The supraumbilical incision was closed with 0 Vicryl in an interrupted fashion to approximate the fascia. Skin incisions were closed with 4-0 Monocryl in subcuticular fashion. Steri-Strips were applied. The patient tolerated the procedure well, and was extubated and transferred to Recovery stable. [id number]/[facility] #: [id number] [facility] CENTERBeata
== END 2019-07-06 10:30 | disposition home or self-care (01) | DRG 419 ==
LOC: ED 16:43 → SSU 19:26
PROVIDERS: ADMIT Surgery; ATTEND Surgery Surgical Critical Care
PROC: 0FT44ZZ Resection of Gallbladder, Percutaneous Endoscopic Approach (ICD-10-PCS; principal; 2019-07-05 17:15)
DX: K80.70 Calculus of gallbladder and bile duct without cholecystitis without obstruction (principal); K21.9 Gastro-esophageal reflux disease without esophagitis; K76.0 Fatty (change of) liver, not elsewhere classified; G47.30 Sleep apnea, unspecified; M17.0 Bilateral primary osteoarthritis of knee; F41.0 Panic disorder [episodic paroxysmal anxiety]; I48.91 Unspecified atrial fibrillation; E66.9 Obesity, unspecified; I10 Essential (primary) hypertension; Z85.3 Personal history of malignant neoplasm of breast; Z90.710 Acquired absence of both cervix and uterus; Z98.84 Bariatric surgery status; Z88.5 Allergy status to narcotic agent; Z88.8 Allergy status to other drugs, medicaments and biological substances; Z87.891 Personal history of nicotine dependence; Z68.29 Body mass index [BMI] 29.0-29.9, adult
CPT/HCPCS: 36415; 76705; 80053; 80076; 81003; 83605; 83690; 84425; 85025; 86140; 88304; 99284; J0330; J0360; J1100; J1170; J1885; J2250; J2405; J2704; J3010; J3411

== ENCOUNTER 2019-07-22 06:30 | Observation (INO) | payer OTHER ==
--- NOTE | 2019-07-09 14:25 | HP ---
CC: Amarilys Lloyd NP; Dr. Baker * PREOPERATIVE HISTORY AND PHYSICAL: DATE OF ADMISSION/SURGERY: 07/22/19 This patient is scheduled for same-day surgery with overnight stay admission by Dr. Guillermo on 07/22/19. DATE OF PREOPERATIVE HISTORY AND PHYSICAL EXAMINATION: 07/09/19. ATTENDING SURGEON: Dr. Oumou Guillermo * (dictated by Jenn Thorne NP). CHIEF COMPLAINT: Right breast cancer. HISTORY OF PRESENT ILLNESS: The patient is a 64-year-old female with a history of triple-negative left breast cancer in 1990 and again in 2011, who presented with a newly diagnosed triple-negative right breast cancer. 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 She states that she identified that mass on her own. She was diagnosed with a second left breast cancer in 2011 that was a 7 mm grade III invasive ductal carcinoma triple negative and she underwent a left mastectomy, reconstruction, and adjuvant chemotherapy. She also underwent breast reduction of the right breast after her left mastectomy. More recently on 06/04/19, she underwent a routine screening mammogram and was noted to have a new 4-mm nodule at the 10 o'clock position in the right breast that was also identified on ultrasound. An ultrasound-guided core biopsy confirmed a grade II invasive ductal carcinoma that was ER/HI, HER-2 negative. She has seen Dr. Mcfarland for oncologic consultation and has decided she wishes to undergo a right mastectomy, sentinel lymph node biopsy and immediate reconstruction. She has no family history of breast or ovarian cancer. She was on control many years ago. She does not remember when she had her first menstrual period; she was 23 at her first live . In 1998, she underwent a hysterectomy. Dr. Guillermo has reviewed the above findings with the patient and has scheduled the patient for a right mastectomy with sentinel lymph node biopsy, followed by immediate reconstruction by Dr. Baker on 04/22/19. Dr. Guillermo discussed the nature of the right mastectomy and sentinel lymph node biopsy, the relevant risks and benefits and today I reviewed the typical hospitalization and the use of Sincere -Menezes drains and she will be consulting with Dr. Baker tomorrow for further preoperative instructions. The patient has had a chance to ask questions and stated that she understands the information and is satisfied with the answers given to her questions. She will sign surgical consent on the day of surgery. PAST MEDICAL HISTORY: Obesity, status post laparoscopic sleeve gastrectomy in December 2018 with an 85-pound weight loss so far; paroxysmal atrial fibrillation, first diagnosed in 2011 due to hypokalemia which converted to normal sinus rhythm without further intervention; left breast cancer as described in history of present illness; hypertension; GERD; anxiety; endometriosis, status post total abdominal hysterectomy; bilateral salpingo-oophorectomy and partial colectomy in 1998. PAST SURGICAL HISTORY: As described in history of present illness as well as section in 1980 and 1982, left knee arthroscopy in 2010 and total abdominal hysterectomy, bilateral salpingo-oophorectomy in 1998 with partial colectomy for endometriosis, laparoscopic sleeve gastrectomy in December [address] Grant, laparoscopic cholecystectomy on 07/05/[address] Grant. MEDICATIONS: 1. Trazodone 50 mg at bedtime as needed, none recently. 2. Xarelto 20 mg p.o. daily in the evening. She will take her last preop dose on 07/19/19. 3. Xanax 0.25 mg one tablet t.i.d. p.r.n., none recently. 4. Iron tablet 65 mg p.o. daily. 5. Multivitamin 1 tablet p.o. daily. ALLERGIES: CODEINE causes vomiting. FAMILY HISTORY: Father due to lung cancer at age 80, also with a history of coronary artery disease. Mother, hypertension and coronary artery disease. 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 She quit smoking in 2011. She occasionally consumes alcohol and denies the use of other substances and walks daily for exercise. REVIEW OF SYSTEMS: Constitutional: No fevers, chills, excessive fatigue or unintended weight loss. General: No previous anesthesia complications. No history of deep vein thrombosis or pulmonary embolism. No bleeding tendencies and she has never received a blood transfusion. Endocrine: No diabetes or thyroid disease. Breasts: As described in history of present illness. Respiratory: No dyspnea on exertion, no chronic cough. Cardiovascular: No anginal chest pain or palpitations. No recent atrial fibrillation. Gastrointestinal: No nausea, vomiting, diarrhea, GI bleeding, constipation, or change in bowel habits. Recent laparoscopic cholecystectomy on 07/05/19, recovering well postoperatively. Genitourinary: No dysuria. Musculoskeletal: Normal strength and tone. Integumentary: No chronic rashes or skin changes. Neurologic: No headache or blurred vision. No areas of focal weakness or numbness. Psychiatric: History of anxiety. No reported depression or insomnia. PHYSICAL EXAMINATION GENERAL SURVEY: The patient is a 64-year-old female, well developed, well nourished, in no acute distress. VITAL SIGNS: Height 68 inches, weight 202 pounds, body mass index 30.7. Blood pressure 142/80, pulse 68 and regular, respiratory rate 16, temperature 97.6 tympanic. HEENT: Benign. NECK: Supple. No cervical lymphadenopathy. No thyromegaly. BACK: No CVA tenderness. LUNGS: Breath sounds bilaterally clear and equal. BREASTS: No chest deformity. Left breast raised compared to right. Right breast, normal contours. No nodules, masses, or tenderness. Well-healed incision in the inframammary fold. No nipple discharge. Left breast, normal contour. No nodules, masses, tenderness. Well-healed incision around the implant. No nipple discharge. Axillae, no palpable lymphadenopathy. HEART: Regular rate and rhythm. No murmurs or rubs appreciated. ABDOMEN: Active bowel sounds, soft, nondistended, nontender throughout. No obvious masses or organomegaly. PELVIC EXAM: Deferred. RECTAL EXAM: Deferred. EXTREMITIES: Warm and well perfused without edema or skin ulceration. NEUROLOGIC: Alert and oriented x3. Steady gait. SKIN: Warm, dry, intact. IMPRESSION: Right breast cancer. PLAN: Same-day surgery with overnight extension for right mastectomy and sentinel lymph node biopsy by Dr. Oumou Guillermo on 07/22/19, followed by immediate reconstruction by Dr. Baker. XIN THORNE, NICOLAS [id number]/[facility] #: [id number] EDWIN
[~2019-07-22 06:30] MED LIST changes: -Famotidine IV* 10 MG/ML 2 ML (20 mg) IV ONE; +Sodium Citrate/Citric Acid* 15 ML UDC PO ONE
[2019-07-22] MEDS ORDERED: Lidocaine 2.5%/Prilocain 2.5%* 5 GM TUBE ONE (06:57)
[2019-07-22] MEDS ORDERED: Buffered Lidocaine 1% SYRIN* 1 ML/SYRINGE INTRADERM ONE ×2 (06:57→08:21)
[2019-07-22] MEDS ORDERED: Heparin VIAL(*) 5000 UNITS/ML VIAL (FIVE THOUSAND) ONE (10:48)
[2019-07-22] MEDS ORDERED: Dexamethasone IV* 4 MG/ML 1 ML (4 MG) ONE ×2 (10:48→13:41)
[2019-07-22] MEDS ORDERED: ceFAZolin 2 GM PREMIX in ORs 2 GM/50 ML BAG ONE ×2 (10:49→16:26)
[2019-07-22] MEDS ORDERED: Ondansetron INJ* 2 MG/ML VIAL ONE (10:49)
[2019-07-22] MEDS ORDERED: Scopolamine 1.5 mg* PATCH ONE (10:49)
[2019-07-22] MEDS ORDERED: Gentamicin ADULT (*) 40 MG/ML VIAL (2 ML VIAL = 80 MG) ONE (11:27)
[2019-07-22] MEDS ORDERED: Bacitracin INJECTION* 50,000 UNITS ONE (11:28)
[2019-07-22] MEDS ORDERED: Povidone Iodine 5% OPTH* 30 ML BTL ONE (11:28)
[2019-07-22] MEDS ORDERED: ceFAZolin VIAL(*) VIAL ONE (11:28)
[2019-07-22] MEDS ORDERED: Bupivacaine 0.25% SDV* 30 ML ONE (11:29)
[2019-07-22] MEDS ORDERED: Midazolam* 1 MG/ML 2 ML VIAL (2 MG) ONE ×2 (12:21→13:16)
[2019-07-22] MEDS ORDERED: fentaNYL* 50 MCG/ML 5 ML VIAL (250 MCG VIAL) ONE (12:21)
[2019-07-22] MEDS ORDERED: Lidocaine 2% PF * 5 ML VIAL ONE (12:31)
[2019-07-22] MEDS ORDERED: Propofol* 10 MG/ML 20 ML BTL ONE (12:31)
[2019-07-22] MEDS ORDERED: Rocuronium* 10 MG/ML VIAL ONE (12:32)
[2019-07-22] MEDS ORDERED: DiMENhydriNATE IV* 50 MG/ML VIAL IV PUSH PRN (12:42)
[2019-07-22] MEDS ORDERED: Acetaminophen IV 1GM/100ML * 1,000 MG/100 ML VIAL IVPB ONE (12:42)
[2019-07-22] MEDS ORDERED: Naloxone* 0.4 MG/ML 1 ML VIAL IV PRN (12:42)
[2019-07-22] MEDS ORDERED: KETAMINE HCL* 50 MG/ML 10 ML VIAL ONE (13:10)
--- NOTE | 2019-07-22 16:30 | BRIEFOPN ---
Brief Operative/Procedure Note - Operation Details Pre-Op Diagnosis: right breast cancer Post-Op Diagnosis: right breast cancer Procedures: right mastectomy, sentinal lymph node biopsy Surgeon(s)/Proceduralists: Jenn Persaud Anesthesia: GETA Findings: one right sentinal lymph node Specimen(s)/Culture(s) Description: right breast, sentinal lymph node Complications: none
[2019-07-22] MEDS ORDERED: Acetaminophen TAB* 325 MG PO PRN (16:49)
[2019-07-22] MEDS ORDERED: HYDROmorphone INJ* 0.5 MG/0.5 ML SYRINGE IV SLOW PU PRN (16:49)
[2019-07-22] MEDS ORDERED: DiMENhydriNATE IV* 50 MG/ML VIAL ONE (18:04)
[2019-07-22] MEDS ORDERED: fentaNYL* 50 MCG/ML 2 ML VIAL (100 MCG VIAL) ONE ×2 (18:07→18:33)
[2019-07-22] MEDS ORDERED: Acetaminophen IV 1GM/100ML * 100 ML ONE (18:13)
[2019-07-22] MEDS: fentaNYL* 50 MCG/ML 2 ML VIAL (100 MCG VIAL) IV PRN ×4 (18:15→19:06)
[2019-07-22] MEDS: Lactated Ringers 1000 ML Bag* 1,000 ML IV SCH (19:35)
[2019-07-22] MEDS: HYDROcodone/ACETAMIN 5-325 MG* 1 TAB PO PRN (20:08)
[2019-07-22] MEDS: Heparin VIAL(*) 5000 UNITS/ML VIAL (FIVE THOUSAND) SUBCUT SCH (22:29)
[2019-07-23] MEDS: HYDROcodone/ACETAMIN 5-325 MG* 1 TAB PO PRN ×3 (00:05→10:39)
[2019-07-23] MEDS: ceFAZolin 1 GM ADVAN(*) 1 GM in NS 0.9% 50 ML* 50 ML IVPB SCH ×2 (00:44→07:42)
--- NOTE | 2019-07-23 02:35 | OP ---
DATE OF OPERATION: 07/22/19 - ROOM #333 DATE OF : 59 SERVICE: General Surgery. ATTENDING SURGEON: Oumou Guillermo MD HYDRAULIC AND PLUMBING INSTALLER: Jenn Mar NP ANESTHESIOLOGIST: Dr. Marcos Tapia. PRE-OP DIAGNOSIS: Right breast cancer. POST-OP DIAGNOSIS: Right breast cancer. OPERATIVE PROCEDURE: Right mastectomy and sentinel lymph node biopsy. ESTIMATED BLOOD LOSS: Less than 50 cc. SPECIMENS: Right breast and sentinel lymph node. INDICATIONS FOR SURGERY: Ms. 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 She therefore wished to undergo a right mastectomy with a sentinel lymph node biopsy and immediate reconstruction with Dr. Baker. She understood that the risks included, but were not limited to bleeding, infection, injury to nearby structures. She understood all these things and wished to proceed. DESCRIPTION OF PROCEDURE: The patient was brought back to the operating room and placed on the operating room table in a supine position. Sequential compression devices were placed on bilateral lower extremity for DVT prophylaxis. The patient had previously received subcutaneous heparin in the preoperative holding area. General endotracheal anesthesia was induced. The patient was given antibiotics and a Workman catheter was then placed. The patient 's chest was prepped and draped in the normal sterile fashion and prior to beginning the procedure both myself and Dr. Baker performed a time-out verifying our procedures, the patient, and date of . Next, Dr. Baker proceeded with outlining an incision appropriate for this procedure given that the patient had previously undergone a bilateral breast reduction with him and she therefore had an inframammary incision as well as an incision that was periareolar. He outlined the incision and then using a 10 blade, he divided the skin down to the subcutaneous tissue and he excised the inframammary scars. He also excised a scar that was in the midline of the breast from the intermammary fold all the way up to the nipple. The areola also was encircled and divided down to the subcutaneous tissue. Next, I then proceeded to perform the mastectomy. Using Karri retractors, the superior breast flap was elevated and the fascia between the subcutaneous tissue and the anterior mammary fascia was identified and the superior flap was developed superiorly towards the clavicle, medially towards the lateral border of the sternum. Once the clavicle was encountered, the breast tissue was taken down to the fascia of the pectoralis major muscle. Next, attention was turned towards developing the inferior flap. The inferior flap was rather small again because of her breast reduction surgery. The skin was divided down to the subcutaneous tissue, the inferior flap was elevated and the breast tissue was taken down to the fascia overlying again the pectoralis major muscle with care taken not to proceed too inferiorly below the inframammary fold. At this point, the lateral border was developed. The tissue was taken down laterally towards the latissimus muscle and then once these borders were defined, the breast was taken off of the chest wall and included the anterior pectoralis fascia from the superior border at the clavicle and this was taken in a medial to lateral fashion until only the axillary tail in the axilla was left. At this point, the sentinel lymph node biopsy was performed. The patient previously had had an intradermal periareolar injection of the radioisotope dye. Using a gamma probe, a single sentinel lymph node was identified. The in situ count was 689 and ex vivo count was 820. After removal of the sentinel lymph node, the axillary bed count was 5. Therefore, the breast was taken out of the breast cavity, divided at the remaining tissue of the axilla, and then it was marked as follows: The superior border was marked with a short suture, the medial border was marked with a medium-length suture and the lateral border was marked with a long suture. Of note, during the lateral dissection, there was a cut edge of the breast tissue that was developed in the breast tissue when I made my flap slightly too deep. I corrected this plane and, however, there was a cut edge that did get developed as I cauterized into a slightly deeper plane. I closed this flap with the lateral suture and at the end of the case, took the specimen down to Pathology and showed them where the true anterior border of the specimen was. After the breast was carried off as a specimen, hemostasis was obtained in the breast cavity and then Dr. Baker scrubbed in to perform his portion of the procedure which was placement of a tissue cafe assistant and closer. He will dictate his portion separately. [id number]/[facility] #: [id number] [facility] MEDICAL CENTERBeata
[2019-07-23] MEDS: Lactated Ringers 1000 ML Bag* 1,000 ML IV SCH (04:16)
[2019-07-23] MEDS: Heparin VIAL(*) 5000 UNITS/ML VIAL (FIVE THOUSAND) SUBCUT SCH ×2 (05:40→15:26)
[2019-07-23 06:38] LABS: ABS Lymphocytes 1.5 10^3/ul (1.0-4.8); ABS Monocytes 0.7 10^3/ul (0-0.8); ABS Neutrophils 11.9 10^3/ul (1.5-7.7); Hematocrit 36 % (35-47); Hemoglobin 12.4 g/dL (12.0-16.0); Lymphocyte % 10.9 %; Mean Corpuscular HGB Conc 34 g/dL (31-36); Mean Corpuscular Hemoglobin 30 pg (27-31); Mean Corpuscular Volume 89 fL (80-97); Mean Platelet Volume 9.4 fL (7.4-10.4); Platelet Count 224 10^3/uL (150-450); Red Cell Distribution Width 13 % (10-15); White Blood Count 14.1 10^3/uL (3.5-10.8)
[2019-07-23 06:51] LABS: BUN/Creatinine Ratio 20.3 (8-20); Calcium 8.9 mg/dL (8.6-10.3); EGFR Non-African American 103.3 (>60); Potassium 4.4 mmol/L (3.5-5.0)
--- NOTE | 2019-07-23 07:37 | PN ---
Progress Note - Progress Note Date of Service: 07/23/19 SOAP: Subjective: Feeling well. Pain controlled with PO meds. Ambulating without difficulty. Objective: Afebrile. VSS VAC in place. AZUL moderate serosanguinous. No unusual swelling or erythema on chest. Assessment: Doing well POD#1 Plan: OK for discharge with AZUL and VAC in place. OK to restart Xarelto tomorrow. Follow up in my office in 6 days.
--- NOTE | 2019-07-23 07:45 | PN ---
Progress Note - Progress Note Date of Service: 07/23/19 Note: Surgery Progress Note S: Patient is doing well. She is tolerating food. Pain is well controlled. O: Vital Signs - 24 hr 07/22/19 07/22/19 07/22/19 17:55 17:56 18:00 Temperature 96.8 F Pulse Rate 97 93 80 Respiratory 16 15 Rate Blood Pressure 155/69 147/74 (mmHg) O2 Sat by Pulse 98 98 99 Oximetry 07/22/19 07/22/19 07/22/19 18:05 18:10 18:15 Temperature Pulse Rate 67 71 66 Respiratory 21 9 15 Rate Blood Pressure 152/74 151/77 141/73 (mmHg) O2 Sat by Pulse 100 100 98 Oximetry 07/22/19 07/22/19 07/22/19 18:22 18:30 18:35 Temperature Pulse Rate 64 Respiratory 18 24 18 Rate Blood Pressure 120/72 (mmHg) O2 Sat by Pulse 96 Oximetry 07/22/19 07/22/19 07/22/19 18:45 19:00 19:06 Temperature Pulse Rate 59 58 Respiratory 15 19 16 Rate Blood Pressure 144/72 152/76 (mmHg) O2 Sat by Pulse 98 97 Oximetry 07/22/19 07/22/19 07/22/19 19:30 20:08 21:20 Temperature 98 F 98.5 F Pulse Rate 54 58 Respiratory 16 19 18 Rate Blood Pressure 143/57 142/56 (mmHg) O2 Sat by Pulse 100 98 Oximetry 07/22/19 07/22/19 07/23/19 22:31 23:00 00:05 Temperature 98.3 F Pulse Rate 59 Respiratory 18 18 18 Rate Blood Pressure 146/53 (mmHg) O2 Sat by Pulse 98 Oximetry 07/23/19 07/23/19 07/23/19 01:46 02:29 05:55 Temperature 98.1 F Pulse Rate 59 Respiratory 18 19 18 Rate Blood Pressure 111/53 (mmHg) O2 Sat by Pulse 100 Oximetry 07/23/19 07:37 Temperature Pulse Rate Respiratory 18 Rate Blood Pressure (mmHg) O2 Sat by Pulse Oximetry Laboratory Results - last 24 hr 07/23/19 07/23/19 06:16 06:16 WBC 14.1 H RBC 4.10 Hgb 12.4 Hct 36 MCV 89 MCH 30 MCHC 34 RDW 13 Plt Count 224 MPV 9.4 Neut % (Auto) 84.0 Lymph % (Auto) 10.9 [place] % (Auto) 5.0 Eos % (Auto) 0.0 Baso % (Auto) 0.1 Absolute Neuts (auto) 11.9 H Absolute Lymphs (auto) 1.5 Absolute Monos (auto) 0.7 Absolute Eos (auto) 0.0 Absolute Basos (auto) 0.0 Absolute Nucleated RBC 0.0 Nucleated RBC % 0.0 Sodium 139 Potassium 4.4 Chloride 106 Carbon Dioxide 27 Anion Gap 6 BUN 12 Creatinine 0.59 Est GFR ( Amer) 125.0 Est GFR (Non-Af Amer) 103.3 BUN/Creatinine Ratio 20.3 H Glucose 133 H Calcium 8.9 Intake & Output 07/22/19 07/23/19 07/23/19 22:59 06:59 14:59 Intake Total 1200 2003 Output Total 230 450 Balance 970 1553 Intake: IV Fluids 1200 988 LR 1200 988 IVPB 55 Oral 960 Output: AZUL #1 30 50 Urine 200 400 Physical exam: Right chest wall- Prevena vac in place to suction, AZUL with s/s fluid in bulb A/P: 64 F POD 1 right mastectomy, SLNB, 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 - DC today after final dose of abx - FU with myself and Dr. Baker in the office - Xarelto can be restarted Monday
[2019-07-23 11:10] VITALS: BP 127/46
--- NOTE | 2019-07-29 14:41 | DS ---
Discharge Summary Surgeon: Eagle Baker MD Admit Date:07/22/19 Discharge Date:07/23/19 Admission Dx:Right Breast Cancer D/C diagnosis:Right Breast Cancer Assessment of Condition at Discharge: Stable Date of D/C PEX: Chest:Prevena vac dressing in place to suction, AZUL with SS output Procedures Performed: Right breast mastectomy, SNLBx, placement of tissue ranch hand livestock and AZUL drain Hospital Course: pt taken to the OR ON 07/22/19 for Right breast mastectomy, SNLBx, placement of tissue ranch hand livestock and AZUL drain. Tolerated well and was transfered to the PACU then SSU for post op care. Patient remained overnight for additional IV antibiotics. once completed patient was discharged home. Discharge instructions were given to the patient regarding Diet, Medications, Activity, and post operative Follow up. All Questions were answered. Discharged Home in Stable Condition on 07/23/19
== END 2019-07-23 15:40 | disposition home or self-care (01) ==
LOC: OR 06:30 → SSU 16:51
PROVIDERS: ADMIT Physician Assistant Surgical; ATTEND Plastic Surgery
DX: C50.911 Malignant neoplasm of unspecified site of right female breast (principal); E66.9 Obesity, unspecified; I48.0 Paroxysmal atrial fibrillation; Z98.84 Bariatric surgery status; I10 Essential (primary) hypertension; K21.9 Gastro-esophageal reflux disease without esophagitis; Z90.710 Acquired absence of both cervix and uterus; Z79.01 Long term (current) use of anticoagulants; Z79.899 Other long term (current) drug therapy; Z87.891 Personal history of nicotine dependence
CPT/HCPCS: 36415; 78195; 80048; 85025; 88307; 88342; 88360; 96365; 96372; 96375; A9270-GY; A9541; C1789; G0378; J0690; J1100; J1240; J1580; J1644; J2250; J2405; J2704; J3010; J3490; Q4128